=== PATIENT | female | born 1980 | race Caucasian/White ===

== ENCOUNTER 2019-06-22 17:29 | Emergency (ER) | payer OTHER, SELFPAY ==
--- NOTE | 2019-06-22 17:37 | DI.RAD.S_ITS ---
PROCEDURE: XR CHEST 2V INDICATIONS: shortness of breath TECHNIQUE: 2 views of the chest were acquired. COMPARISON: None. FINDINGS: Surgical changes and devices: None. Lungs and pleura: An incomplete inspiratory result is noted, causing a crowded appearance to the lung markings. No focal infiltrates are seen. No pneumothorax or significant pleural effusions are seen. Mediastinum: Mediastinal contours are normal. Heart size is normal. Bones and chest wall: No suspicious bony abnormalities. Soft tissues appear unremarkable. IMPRESSION: No acute cardiopulmonary process is seen. Dictated by: Lawson Garrison M.D. on 06/22/2019 at 16:57 Approved by: Lawson Garrison M.D. on 06/22/2019 at 16:57
[2019-06-22 17:46] VITALS: BP 126/67; PULSE 98; RESP 16; TEMP 36.7; O2SAT 98
[2019-06-22 18:03] VITALS: BP 124/78; PULSE 83; RESP 19; O2SAT 98
--- NOTE | 2019-06-22 18:08 | ED_ITS ---
HPI - Chest Pain General Chief Complaint: Chest Pain Stated Complaint: chest pain Time Seen by Provider: 06/22/19 18:01 History of Present Illness HPI narrative: 38-year-old woman with no significant medical history presents with 24 hours of increasing central chest pain pressure in a sense of increased pressure when she is laying flat in taking a deep breath. She has had a mild viral type syndrome with slight cough and minimal fever over the last 3 weeks with starting to feel better when she noticed increasing pain in the chest with deep breathing. She is currently having no fevers, no abdominal pain, nausea, vomiting, diarrhea, lower extremity edema. Related Data Allergies Allergy/AdvReac Type Severity Reaction Status Date / Time No Known Drug Allergies Allergy Verified 06/22/19 17:34 Review of Systems Review of Systems Narrative: All systems reviewed and are unremarkable except as noted in HPI and below Patient History Medical History Healthy adult (Acute) IUD (intrauterine device) in place (Acute) Social History Smoking Status: Current some day smoker Smoking Status: Current some day smoker alcohol intake frequency: a few times a week Substance Use Type: marijuana Exam Narrative Exam Narrative: General: Healthy appearing, in no acute distress. Able to give a complete and coherent history. Well-nourished well-developed HEENT: Moist mucous membranes, normal sclera with reactive pupils, Neck: No JVD, supple Respiratory: Lungs are clear to auscultation, no wheezing no rales no rhonchi. Full and symmetrical air movement, pain is reproduced with deep inspiratory effort Cardiac: Regular rate and rhythm no murmurs no bruits Chest wall: Tenderness along costal sternal margins right more than left Abdomen: Soft nontender good bowel tones, no flank pain Skin: Warm and dry, no rashes Neurologic: Grossly neurologically intact with no obvious asymmetries or abnormalities Extremities: No trauma, well perfused Psych: Cooperative, appropriate insight and affect Initial Vital Signs Initial Vital Signs: Vital Signs Temperature 98.0 F 06/22/19 17:46 Pulse Rate 98 H 06/22/19 17:46 Respiratory Rate 16 06/22/19 17:46 Blood Pressure 126/67 06/22/19 17:46 Pulse Oximetry 98 06/22/19 17:46 Course Orders Ordered: ED Orders 06/22/19 17:37 XR chest 2V Stat EKG-12 Lead Stat Measure peak expiratory flow ONCE RT Consult Eval and Treat Now 06/22/19 18:40 Complete Blood Count AUTO DIFF Stat Comprehensive Metabolic Panel Stat Lactate (Lactic Acid) Stat Discontinued Medications Acetaminophen (Tylenol) 325 mg PO NOW ONE Stop: 06/22/19 18:34 Last Admin: 06/22/19 19:03 Dose: 325 mg Documented by: ANGEL Ibuprofen (Advil) 400 mg PO NOW ONE Stop: 06/22/19 18:34 Last Admin: 06/22/19 19:03 Dose: 400 mg Documented by: ANGEL Vital Signs Vital signs: Vital Signs - 8 hr 06/22/19 17:46 06/22/19 18:03 06/22/19 18:55 Temperature 98.0 F Pulse Rate 98 H 83 85 Respiratory Rate 16 19 18 Blood Pressure [Left Arm] 126/67 124/78 112/75 Pulse Oximetry 98 98 99 06/22/19 19:30 Temperature Pulse Rate 87 Respiratory Rate 19 Blood Pressure [Left Arm] 120/73 Pulse Oximetry 97 MDM - Chest Pain Medical Records Data Attestation: I reviewed the patient's medical records. Lab Data Attestation: I reviewed the patient's lab results. Result diagrams: 06/22/19 18:40 06/22/19 18:40 Labs: Lab Results 06/22/19 06/22/19 06/22/19 Range/Units 18:40 18:40 18:40 WBC 13.6 H (4.5-11.0) X10^3/uL RBC 4.45 (4.0-5.2) X10^6/uL Hgb 14.3 (12.0-16.0) g/dL Hct 41.9 (36-46) % MCV 94.1 (80-100) fL MCH 32.1 (26-34) PG MCHC 34.1 (30-36) % RDW 12.9 (11.6-14.8) % Plt Count 266 (150-400) X10^3/uL Neut % (Auto) 61.6 (50-75) % Lymph % (Auto) 28.7 (25-40) % [place] % (Auto) 6.4 (3-14) % Eos % (Auto) 2.6 (2-4) % Baso % (Auto) 0.7 (0-2) % Neut # (Auto) 8300 H (2092-6835) /uL Lymph # (Auto) 3900 (4608-3605) /uL [place] # (Auto) 900 (0-900) /uL Eos # (Auto) 400 (0-450) /uL Baso # (Auto) 100 (0-100) /uL Sodium 139 (137-145) mmol/L Potassium 3.7 (3.4-5.1) mmol/L Chloride 107 (98-107) mmol/L Carbon Dioxide 24 (22-32) mmol/L BUN 11 (7-17) mg/dL Creatinine 0.59 (0.52-1.04) mg/dL Estimated GFR > 60.0 (>60) mL/min BUN/Creatinine Ratio 18.6 (6-22) Glucose 84 (70-100) mg/dL Lactate 0.9 (0.7-2.1) mmol/L Calcium 9.6 (8.4-10.2) mg/dL Total Bilirubin 0.2 (0.2-1.3) mg/dL AST 23 (14-36) IU/L ALT 20 (<35) IU/L Alkaline Phosphatase 61 (38-126) U/L Total Protein 7.8 (6.3-8.2) g/dL Albumin 4.5 (3.5-5.0) g/dL Globulin 3.3 (1.7-4.1) g/dL Albumin/Globulin Ratio 1.4 (1.0-2.8) Point of Care Testing Test Results Negative Urine Dip Bedside Urine Glucose Negative Bedside Urine Bilirubin - Negative Bedside Urine Ketone - Negative Urine Specific [place] 1.010 Bedside Urine Occult Blood +/- Bedside Urine pH 6.0 Bedside Urine Protein - Negative Bedside Urine Urobilinogen - Negative Bedside Urine Nitrite - Negative Bedside Urine Leukocytes - Negative Esterase Imaging Data Chest x-ray: Radiologist's Impression: IMPRESSION: No acute cardiopulmonary process is seen. Dictated by: Lawson Garrison M.D. on 06/22/2019 at 16:57 ECG Data Attestation: I personally reviewed and interpreted this ECG as follows: Interpretation: Normal sinus rhythm at a rate of 87 Normal intervals, normal axis no ST T wave changes or acute ischemia MDM Narrative Medical decision making narrative: 38-year-old otherwise healthy woman with resolving upper respiratory symptoms now with pleuritic and costochondral type chest pain, reproducible on palpation along the costal margin and with deep breathing. No evidence of overt infection, coronary syndrome EKG abnormalities, post influenza complications, pericarditis, cardiomyopathy or congestive heart failure. Suspect that this is a postviral pleurisy with costochondritis. Discharge Plan Departure Patient Disposition: Home Clinical Impression: Pleurisy, Acute costochondritis Instructions: DI for Costochondritis, DI for Pleurisy Activity Restrictions/Additional Instructions: Thank you for coming in today. Your labs, clinical exam and chest x-ray as well as your EKG are all very reassuring. At this point I do not see signs of overwhelming infection, heart attack or heart attack like syndromes, or heart complications of viral infections. We did test you for Covid19, cisneros virus. You will be called with results. In the meantime, I do think that you have both a pleuritic as well as a costoc hondritic component ear pain. Using 400 mg of ibuprofen (2 whdi-vjx-yxjdiin pills) and 1 Tylenol every 6 hours can be very helpful in controlling pain. If you feel like you are getting worse, developed more shortness of breath, have recurrent fevers or develop new or different symptoms please return to the emergency room and I am happy to re-evaluate. I hope you feel better CDC Guidelines for home isolation: - Stay away from others - Limit contact with pets and animals: If you must care for a pet, wash your hands before and after interacting with them - Wear a mask if you are sick - Cover your mouth and nose with a tissue when you cough or sneeze. Dispose of tissues in a lined trash can and wash your hands immediately with soap and water for at least 20 seconds. If soap and water are not available, clean hands with alcohol-based hand supportive employment case manager that contains at least 60% alcohol. - Clean your hands often with soap and water for at least 20 seconds - Avoid touching your eyes, nose and mouth with unwashed hands - Do not share dishes, drinking glasses, cups, eating utensils, towels, or bedding with other people in your home. After using these items, wash them thoroughly with soap and water or put in the manager medicare marketing. - Clean high-touch surfaces in your isolation area (?sick room? and bathroom) every day; let a caregiver clean and disinfect high-touch surfaces in other areas of the home. Clean the area or item with soap and water or another detergent if it is dirty. Then, use a household disinfectant. Seek medical attention, but call first: - Seek medical care right away if your illness is worsening (for example, if you have difficulty breathing). - Call your doctor before going in: Before going to the doctor?s office or emergency room, call ahead and tell them your symptoms. They will tell you what to do. - If possible, put on a facemask before you enter the building. If you can?t put on a facemask, try to keep a safe distance from other people (at least 6 feet away). This will help protect the people in the office or waiting room. - Follow care instructions from your healthcare provider and local health department: Your local health authorities will give instructions on checking your symptoms and reporting information. Emergency warning signs for COVID-19: - Difficulty breathing or shortness of breath - Persistent pain or pressure in the chest - New confusion or inability to arouse - Bluish lips or face
[2019-06-22 18:55] VITALS: BP 112/75; PULSE 85; RESP 18; O2SAT 99
[2019-06-22] MEDS: ACETAMINOPHEN 325 MG TABLET PO (19:03)
[2019-06-22] MEDS: IBUPROFEN 400 MG TABLET PO (19:03)
[2019-06-22 19:30] VITALS: BP 120/73; PULSE 87; RESP 19; O2SAT 97
[2019-06-22 19:41] LABS: Add Manual Diff / Slide Review NO; Basophils Absolute Auto 100 /uL (0-100); Basophils Percent Auto 0.7 % (0-2); Eosinophils Absolute Auto 400 /uL (0-450); Eosinophils Percent Auto 2.6 % (2-4); Hematocrit 41.9 % (36-46); Hemoglobin 14.3 g/dL (12.0-16.0); Lymphocytes Absolute Auto 3900 /uL (1100-4500); Lymphocytes Percent Auto 28.7 % (25-40); Mean Corpuscular HGB Conc 34.1 % (30-36); Mean Corpuscular Hemoglobin 32.1 PG (26-34); Mean Corpuscular Volume 94.1 fL (80-100); Monocytes Absolute Auto 900 /uL (0-900); Monocytes Percent Auto 6.4 % (3-14); Neutrophils Absolute Auto 8300 /uL (1500-7000); Neutrophils Percent Auto 61.6 % (50-75); Platelet Count 266 X10^3/uL (150-400); Red Blood Cell Count 4.45 X10^6/uL (4.0-5.2); Red Cell Distribution Width 12.9 % (11.6-14.8); White Blood Cell Count 13.6 X10^3/uL (4.5-11.0)
[2019-06-22 19:52] LABS: Lactate (Lactic Acid) 0.9 mmol/L (0.7-2.1)
[2019-06-22 19:53] LABS: Alanine Aminotransferase 20 IU/L (<35); Albumin 4.5 g/dL (3.5-5.0); Albumin Globulin Ratio 1.4 (1.0-2.8); Alkaline Phosphatase 61 U/L (38-126); Aspartate Aminotransferase 23 IU/L (14-36); BUN Creatinine Ratio 18.6 (6-22); Bilirubin Total 0.2 mg/dL (0.2-1.3); Blood Urea Nitrogen 11 mg/dL (7-17); Calcium 9.6 mg/dL (8.4-10.2); Carbon Dioxide 24 mmol/L (22-32); Chloride 107 mmol/L (98-107); Estimated Glomerular Filt Rate > 60.0 mL/min (>60); Globulin 3.3 g/dL (1.7-4.1); Glucose 84 mg/dL (70-100); HEMOLYSIS < 15 (0-50); Potassium 3.7 mmol/L (3.4-5.1); Sodium 139 mmol/L (137-145); Total Protein 7.8 g/dL (6.3-8.2)
[2019-06-22 20:47] VITALS: BP 130/75; PULSE 68; RESP 18; O2SAT 98
[2019-06-24 05:36] LABS: COVID19 Sendout Not Detected (Not Detected)
== END 2019-06-22 20:55 | disposition home or self-care (01) ==
PROVIDERS: Emergency Medicine; Emergency Provider Emergency Medicine
DX: R09.1 Pleurisy (principal); M94.0 Chondrocostal junction syndrome [Tietze]; R07.9 Chest pain, unspecified; R06.02 Shortness of breath
CPT/HCPCS: 36415; 71046; 80053; 81003; 81025; 83605; 85025; 87635; 93005; 94150; 99284

== ENCOUNTER → 2019-06-29 14:09 | Outpatient (CLI) | payer OTHER, SELFPAY ==
--- NOTE | 2019-06-29 14:13 | DI.RAD.S_ITS ---
PROCEDURE: XR CHEST 2V INDICATIONS: chest wall pain with cough TECHNIQUE: 2 views of the chest were acquired. COMPARISON: [facility], CR, XR CHEST 2V, 06/22/2019, 17:38. FINDINGS: Surgical changes and devices: None. Lungs and pleura: Lungs are clear. No pleural effusions or pneumothorax. Mediastinum: Mediastinal contours are normal. Heart size is normal. Bones and chest wall: No suspicious bony abnormalities. Soft tissues appear unremarkable. IMPRESSION: Stable radiographic evaluation of the chest without acute cardiopulmonary abnormalities or focal airspace disease. Dictated by: Kevin Giang M.D. on 06/29/2019 at 16:03 Approved by: Kevin Giang M.D. on 06/29/2019 at 16:04
== END ==
PROVIDERS: Referring Provider Family Medicine; Visit Provider Family Medicine
DX: R07.89 Other chest pain (principal); R05 Cough; M94.0 Chondrocostal junction syndrome [Tietze]; R09.1 Pleurisy
CPT/HCPCS: 71046

== ENCOUNTER → 2019-07-21 11:00 | Outpatient (CLI) | payer OTHER, SELFPAY ==
--- NOTE | 2019-07-21 11:01 | DI.CT.S_ITS ---
PROCEDURE: CT ANGIO CHEST INDICATIONS: SOB/chest pain TECHNIQUE: After the administration of intravenous contrast, 2 mm thick sections acquired from the pulmonary apices to the posterior costophrenic angles. 3-dimensional maximum intensity projection (MIP) coronal and sagittal reformats were then acquired through the thorax. For radiation dose reduction, the following was used: automated exposure control, adjustment of mA and/or kV according to patient size. COMPARISON: None. FINDINGS: Image quality: Excellent. Diagnostic to the level of the subsegmental pulmonary arteries. Pulmonary arteries: Pulmonary arteries are normal in size, and demonstrate no intraluminal filling defects to suggest central pulmonary embolism. Lungs and pleura: Lungs are clear. A punctate granuloma in the left upper lobe. No pleural effusions or pneumothorax. Central and peripheral airways are patent. Mediastinum: Heart size is normal, without pericardial effusion. No mediastinal or hilar adenopathy. Thoracic aorta is normal in caliber and enhancement. Esophagus is normal in caliber, without hiatal hernia. Bones and chest wall: No suspicious bony lesions. Ribs and thoracic spine appear intact throughout. Thyroid gland is unremarkable. No axillary or supraclavicular adenopathy. Abdomen: Visualized upper abdominal solid organs appear normal in the early arterial phase of enhancement. IMPRESSION: 1. No pulmonary embolism. 2. No acute airspace opacity. Dictated by: Herrera Mcguire M.D. on 07/21/2019 at 12:07 Approved by: Herrera Mcguire M.D. on 07/21/2019 at 12:13
== END ==
PROVIDERS: Referring Provider Family Medicine; Visit Provider Family Medicine
DX: R06.02 Shortness of breath (principal); R07.9 Chest pain, unspecified
CPT/HCPCS: 71275; Q9967

== ENCOUNTER 2019-09-08 10:13 | Emergency (ER) | payer OTHER, SELFPAY ==
[2019-09-08 10:14] VITALS: BP 136/77; PULSE 84; RESP 17; TEMP 36.9; O2SAT 100; BMI 30.2
[2019-09-08 10:16] VITALS: BP 136/77; PULSE 83; O2SAT 100
[2019-09-08 10:30] VITALS: PULSE 72; O2SAT 98
--- NOTE | 2019-09-08 10:33 | ED_ITS ---
HPI - Chest Pain General Chief Complaint: Chest Pain Stated Complaint: hard time swallowing, GERD Time Seen by Provider: 09/08/19 10:18 Source: patient Mode of arrival: Ambulatory Limitations: no limitations History of Present Illness HPI narrative: Patient is a 38-year-old female with history of severe GERD although she was just diagnosed with it. Presenting with chest pain and difficulty swallowing. She says it hurts when she swallows her saliva although she is able to do so she has got some epigastric pain. She did not eat anything recently no food is stuck in her throat it just hurts when she swallows. She is taking omeprazole which she took this morning and he says that has not helped. She denies any shortness of breath. MD complaint: chest pain Related Data Home Medications Medication Instructions Recorded Confirmed albuterol sulfate 90 mcg/actuation 2 puff INHALATION Q6H PRN 06/29/19 07/21/19 aerosol inhaler Previous Rx's Medication Instructions Recorded indomethacin 50 mg capsule 50 mg PO QID #30 cap 06/29/19 omeprazole magnesium 20 mg 20 mg PO DAILY #30 tab 07/21/19 tablet,delayed release prednisone 20 mg tablet 20 mg PO DAILY #7 tab 07/21/19 Allergies Allergy/AdvReac Type Severity Reaction Status Date / Time No Known Drug Allergies Allergy Verified 09/08/19 10:17 Review of Systems Review of Systems Narrative: GENERAL: Denies chills, fatigue, malaise, fever, sweats, travel HEENT: Difficulty swallowing see HPI RESPIRATORY: Denies dyspnea, cough, wheezing, hemoptysis, sputum. CARDIOVASCULAR: Chest pain see HPI GASTROINTESTINAL: Denies nausea, vomiting, abdominal pain, diarrhea, constipation, melena. : Denies dysuria, frequency, incontinence, hematuria, urinary retention, flank pain. MUSCULOSKELETAL: Denies weakness, joint pain, or bony pain SKIN: No rash, no erythema, no pruritus NEUROLOGIC: Denies weakness, dizziness, headache, numbness, change in speech, confusion PSYCHIATRIC: No concerning psychosocial issues. 12 point review of systems is negative except for those stated above and HPI Patient History Medical History GERD (gastroesophageal reflux disease) (Acute) Healthy adult (Acute) IUD (intrauterine device) in place (Acute) Social History Smoking Status: Current some day smoker Smoking Status: Current some day smoker alcohol intake frequency: a few times a week Substance Use Type: marijuana Exam Initial Vital Signs Initial Vital Signs: Vital Signs Temperature 98.5 F 09/08/19 10:14 Pulse Rate 84 09/08/19 10:14 Respiratory Rate 17 09/08/19 10:14 Blood Pressure 136/77 09/08/19 10:14 Pulse Oximetry 100 09/08/19 10:14 GENERAL: Alert well-appearing young female and in [no acute] distress. HEENT: Head atraumatic,EOMI, pupils reactive, face symmetric, [moist] mucous membranes CARDIOVASCULAR: Regular rate and rhythm without murmurs, rubs or gallops. RESPIRATORY: Breath sounds equal bilaterally, no wheezes rales or rhonchi. ABDOMEN: Soft, nontender. Normoactive bowel sounds all 4 quadrants. No guarding or rebound. EXTREMITIES: Normal range of motion, no clubbing or edema. Neurovascularly intact NEUROLOGICAL: Alert and oriented x4.Normal gait and speech. Cranial nerves II through XII grossly intact. SKIN: Warm, dry, no laceration, no petechiae, no rashes or lesions. Course Orders Ordered: ED Orders 09/08/19 10:19 EKG-12 Lead Stat 09/08/19 10:54 Basic Metabolic Panel Stat Complete Blood Count AUTO DIFF Stat Discontinued Medications Al Hydrox/Mg Hydrox/Simethicone 20 ml/ Lidocaine HCl 15 ml 0 ml PO NOW ONE Stop: 09/08/19 10:25 Last Admin: 09/08/19 11:01 Dose: 15 ml Documented by: SCANAPO Pantoprazole Sodium (Protonix) 40 mg IV NOW ONE Stop: 09/08/19 10:25 Last Admin: 09/08/19 11:01 Dose: 40 mg Documented by: SCANAPO Vital Signs Vital signs: Vital Signs - 8 hr 09/08/19 10:14 09/08/19 10:16 09/08/19 10:30 Temperature 98.5 F Pulse Rate 84 83 72 Respiratory Rate 17 Blood Pressure 136/77 136/77 Pulse Oximetry 100 100 98 09/08/19 11:48 Temperature Pulse Rate 69 Respiratory Rate Blood Pressure 113/69 Pulse Oximetry 99 MDM - Chest Pain Lab Data Attestation: I reviewed the patient's lab results. Result diagrams: 09/08/19 10:54 09/08/19 10:54 Labs: Lab Results 09/08/19 09/08/19 Range/Units 10:54 10:54 WBC 9.3 (4.5-11.0) X10^3/uL RBC 4.35 (4.0-5.2) X10^6/uL Hgb 14.3 (12.0-16.0) g/dL Hct 40.5 (36-46) % MCV 93.0 (80-100) fL MCH 32.8 (26-34) PG MCHC 35.3 (30-36) % RDW 12.6 (11.6-14.8) % Plt Count 238 (150-400) X10^3/uL Neut % (Auto) 65.7 (50-75) % Lymph % (Auto) 24.7 L (25-40) % [place] % (Auto) 6.5 (3-14) % Eos % (Auto) 2.3 (2-4) % Baso % (Auto) 0.8 (0-2) % Neut # (Auto) 6100 (2563-2014) /uL Lymph # (Auto) 2300 (9844-6839) /uL [place] # (Auto) 600 (0-900) /uL Eos # (Auto) 200 (0-450) /uL Baso # (Auto) 100 (0-100) /uL Sodium 138 (137-145) mmol/L Potassium 4.0 (3.4-5.1) mmol/L Chloride 106 (98-107) mmol/L Carbon Dioxide 27 (22-32) mmol/L BUN 11 (7-17) mg/dL Creatinine 0.63 (0.52-1.04) mg/dL Estimated GFR > 60.0 (>60) mL/min BUN/Creatinine Ratio 17.5 (6-22) Glucose 94 (70-100) mg/dL Calcium 9.3 (8.4-10.2) mg/dL ECG Data Attestation: I personally reviewed and interpreted this ECG as follows: Interpretation: Normal sinus rhythm rate 71 p.r. interval 136 QRS [address] elevation depression or T-wave inversion MDM Narrative Medical decision making narrative: The patient is feeling slightly better after GI cocktail. She has no trouble swallowing her own secretions or fluids or eating. At this time for PCP is trying to get her into a GI however that has not been arranged yet. I also supports that she needed GI evaluation, possibly an upper GI and endoscopy. Discharge Plan Departure Patient Disposition: Home Clinical Impression: GERD (gastroesophageal reflux disease) Qualifiers: Esophagitis presence: esophagitis presence not specified Qualified Code(s): K21.9 - Gastro-esophageal reflux disease without esophagitis Discharge Date/Time: 09/08/19 11:49 Instructions: DI for Gastroesophageal Reflux Disease (GERD) Activity Restrictions/Additional Instructions: *You have been diagnosed with GERD *What to do: You do need more testing and a GI specialist *Continue to take medications as directed Increase omeprazole to 40 mg twice a day Start taking ranitidine 150 mg twice a day (Over the counter) *Follow up with your primary care provider in 2-3 days *Return to ER if you should have inability to swallow, if food is stuck, increasing pain or any new, worsening or concerning symptoms Prescriptions: No Action albuterol sulfate 90 mcg/actuation HFA aerosol inhaler 2 puff INHALATION Q6H PRNRF: 0 indomethacin 50 mg capsule 50 mg PO QID Qty: 30 RF: 0 prednisone 20 mg tablet 20 mg PO DAILY Qty: 7 RF: 0 omeprazole magnesium [Prilosec OTC] 20 mg tablet,delayed release (DR/EC) 20 mg PO DAILY Qty: 30 RF: 0
[2019-09-08] MEDS: MAG HYDROX/ALUMINUM/SIMETH SUS 20 ML, LIDOCAINE VISCOUS 2% 15 ML PO (11:01)
[2019-09-08] MEDS: PANTOPRAZOLE 40 MG VIAL IV (11:01)
[2019-09-08 11:24] LABS: Add Manual Diff / Slide Review NO; Basophils Absolute Auto 100 /uL (0-100); Basophils Percent Auto 0.8 % (0-2); Eosinophils Absolute Auto 200 /uL (0-450); Eosinophils Percent Auto 2.3 % (2-4); Hematocrit 40.5 % (36-46); Hemoglobin 14.3 g/dL (12.0-16.0); Lymphocytes Absolute Auto 2300 /uL (1100-4500); Lymphocytes Percent Auto 24.7 % (25-40); Mean Corpuscular HGB Conc 35.3 % (30-36); Mean Corpuscular Hemoglobin 32.8 PG (26-34); Monocytes Absolute Auto 600 /uL (0-900); Monocytes Percent Auto 6.5 % (3-14); Neutrophils Absolute Auto 6100 /uL (1500-7000); Neutrophils Percent Auto 65.7 % (50-75); Platelet Count 238 X10^3/uL (150-400); Red Blood Cell Count 4.35 X10^6/uL (4.0-5.2); Red Cell Distribution Width 12.6 % (11.6-14.8); White Blood Cell Count 9.3 X10^3/uL (4.5-11.0)
[2019-09-08 11:32] LABS: BUN Creatinine Ratio 17.5 (6-22); Blood Urea Nitrogen 11 mg/dL (7-17); Calcium 9.3 mg/dL (8.4-10.2); Carbon Dioxide 27 mmol/L (22-32); Chloride 106 mmol/L (98-107); Estimated Glomerular Filt Rate > 60.0 mL/min (>60); Glucose 94 mg/dL (70-100); HEMOLYSIS < 15 (0-50); Sodium 138 mmol/L (137-145)
[2019-09-08 11:48] VITALS: BP 113/69; PULSE 69; O2SAT 99
== END 2019-09-08 11:49 | disposition home or self-care (01) ==
PROVIDERS: Emergency Provider Emergency Medicine
DX: K21.9 Gastro-esophageal reflux disease without esophagitis (principal); R10.13 Epigastric pain; R07.89 Other chest pain
CPT/HCPCS: 36415; 80048; 85025; 93005; 96374; 99284; C9113

== ENCOUNTER → 2019-09-20 14:53 | Outpatient (CLI) | payer OTHER, SELFPAY ==
[2019-09-21 08:17] LABS: COVID19 Sendout Not Detected (Not Detect)
== END ==
PROVIDERS: Visit Provider Physician Assistant
DX: Z01.812 Encounter for preprocedural laboratory examination (principal)
CPT/HCPCS: 87635

== ENCOUNTER → 2020-02-22 15:13 | Outpatient (CLI) | payer OTHER, SELFPAY ==
[2020-02-22 15:57] LABS: COVID19 -Nasal RAPID Negative (Negative)
== END ==
PROVIDERS: Referring Provider Internal Medicine; Visit Provider Internal Medicine
DX: Z20.828 Contact with and (suspected) exposure to other viral communicable diseases (principal)
CPT/HCPCS: 87635; C9803

== ENCOUNTER → 2020-02-23 15:16 | Outpatient (CLI) | payer OTHER, SELFPAY ==
--- NOTE | 2020-03-03 12:09 | PM.PFT.1 ---
Pulmonary Function Test Referral & Results Date Patient Seen: 02/23/20 Requesting provider: Christy Ortiz Results: The spirometry demonstrates an FVC of 3.59 L which is 106% of predicted. The FEV1 was measured at 2.89 L which is 103% of predicted. The FEV1/FVC ratio was 81 which is 97% of predicted. Following the administration of bronchodilator there was no appreciable change to above normal numbers. Lung volumes show an SVC of 3.53 L which is 109% of predicted. The diffusing capacity was measured at 18.05 which is 89% of predicted. The maximum voluntary ventilation was minimally reduced Interpretation: This study demonstrates normal pulmonary function
== END ==
PROVIDERS: Referring Provider Physician Assistant Medical; Visit Provider Physician Assistant Medical
DX: R06.00 Dyspnea, unspecified (principal); J98.8 Other specified respiratory disorders; F17.210 Nicotine dependence, cigarettes, uncomplicated
CPT/HCPCS: 94060; 94726; 94729

== ENCOUNTER 2022-01-07 09:12 | Emergency (ER) | payer OTHER, SELFPAY ==
[2022-01-07 09:37] VITALS: BP 111/78; PULSE 104; RESP 17; TEMP 36.3; O2SAT 98; BMI 30.2
[2022-01-07] MEDS: IBUPROFEN 400 MG TABLET 800 MG PO (14:35)
--- NOTE | 2022-01-07 14:36 | DI.MRI.S_ITS ---
PROCEDURE: MR LUMBAR SPINE WO CON INDICATIONS: lower back pain; urinary hesitancy; bowel pressure TECHNIQUE: Noncontrast sagittal T1 spin echo and T2 fast echo, sagittal STIR, and T2 fast spin echo through the lumbar spine. In cases with scoliosis, additional coronal T2 fast spin echo may be performed. COMPARISON: None. FINDINGS: Image quality: Excellent. Alignment and Curvature: There is normal bony alignment. Bone Marrow: Marrow is of normal overall signal. No acute vertebral body compression fractures. Spinal Cord: Conus medullaris terminates at the L1 level. Visualized cord demonstrates normal signal and size. Paraspinous Soft Tissues: No paravertebral masses. T12-L1: Normal appearance. L1-L2: Normal appearance. L2-L3: Normal appearance. L3-L4: Normal appearance. L4-L5: Minimal disc bulge L4-5 without spinal stenosis or foraminal narrowing.. L5-S1: Normal appearance. IMPRESSION: Minimal disc bulge L4-5. No spinal stenosis. Dictated by: Tia Dyer M.D. on 01/07/2022 at 15:20 Approved by: Tia Dyer M.D. on 01/07/2022 at 15:25
[2022-01-07 15:44] VITALS: BP 131/76; PULSE 84; RESP 14; O2SAT 97
--- NOTE | 2022-01-13 18:35 | ED.BACK ---
HPI - Back Pain/Injury General Chief Complaint: Back Pain/Injury Stated Complaint: massive lower lt back pain Sciatica for 10 years Time Seen by Provider: 01/07/22 09:24 Source: patient History of Present Illness HPI Narrative: 41-year-old female presents to the ED with left-sided lower back pain that has been worsening over the past several months. Patient states that she has urinary hesitancy and numbness in the left leg. Patient also states that she has a new symptom which is a pressure that she feels in her bowels, causing an urge for her to have frequent bowel movements. Patient denies tingling, weakness. Patient denies any other symptoms including fever, chills, chest pain, shortness of breath, nausea, vomiting, abdominal pain, dysuria, lightheadedness, dizziness, syncope. Patient denies any recent trauma. Patient states that she is being evaluated by her PCP and physical therapist with no relief. Related Data Home Medications Medication Instructions Recorded Confirmed albuterol sulfate 90 mcg/actuation 2 puff inhalation Q6H PRN 06/29/19 07/21/19 aerosol inhaler Previous Rx's Medication Instructions Recorded indomethacin 50 mg capsule 50 mg PO QID #30 caps 06/29/19 omeprazole magnesium 20 mg 20 mg PO DAILY #30 tabs 07/21/19 tablet,delayed release (Prilosec OTC) prednisone 20 mg tablet 20 mg PO DAILY #7 tabs 07/21/19 Allergies Allergy/AdvReac Type Severity Reaction Status Date / Time No Known Drug Allergies Allergy Verified 01/07/22 09:37 Review of Systems Review of Systems ROS Unobtainable: All systems reviewed & are unremarkable except as noted in HPI and below Constitutional Constitutional: Denies chills, Denies fatigue, Denies fever(s), Denies frequent falls, Denies lethargy and Denies weakness Eyes Eyes: Denies change in vision, Denies eye discharge, Denies irritation and Denies loss of vision ENT Ears, Nose, Mouth, and Throat: Denies change in voice, Denies dizziness, Denies neck pain, Denies sore throat and Denies throat swelling Cardiovascular Cardiovascular: Denies chest pain, Denies irregular heart rhythm, Denies lightheadedness, Denies palpitations, Denies dyspnea, Denies dyspnea on exertion and Denies orthopnea Respiratory Respiratory: Denies cough, Denies dyspnea, Denies dyspnea on exertion and Denies wheezing Gastrointestinal Gastrointestinal: Denies abdominal pain, Denies change in bowel habits, Denies diarrhea, Denies nausea and Denies vomiting Comments: Bowel pressure Genitourinary Genitourinary: Denies hematuria, Denies flank pain, Denies urinary incontinence, Reports urinary hesitancy and Denies urinary urgency Musculoskeletal Musculoskeletal: Reports back pain, Denies muscle weakness, Denies neck pain, Reports numbness and Denies tingling Integumentary/Breasts Skin/Breast: Denies pruritus, Denies erythema, Denies rash and Denies wounds Neurologic Neurologic: Denies behavioral changes, Denies confusion, Denies dizziness, Denies frequent falls, Denies loss of vision, Reports numbness, Denies tingling and Denies weakness Psychiatric Psychiatric: Denies anxiety, Denies behavioral changes, Denies confusion, Denies depression, Denies homicidal ideation and Denies suicidal ideation Endocrine Endocrine: Denies fatigue, Denies flushing and Denies palpitations Hematologic/Lymphatic Hematologic/Lymphatic: Denies easy bruising Allergic/Immunologic Allergic/Immunologic: Denies urticaria, Denies throat swelling and Denies wheezing Patient History Medical History GERD (gastroesophageal reflux disease) Healthy adult IUD (intrauterine device) in place Social History Smoking Status: Current every day smoker Smoking Status: Current every day smoker alcohol intake frequency: a few times a week Substance Use Type: marijuana Exam Narrative Exam Narrative: Const General:?cooperative, healthy appearing and comfortable [facility] Head:?normal to inspection Ears:?hearing grossly normal bilaterally Nose:?external nose normal Face and sinus:?normal facial exam and sinuses nontender Mouth:?oral mucosae normal Throat:?posterior oropharynx normal Eyes General:?appearance normal, both eyes and all related structures Neck Neck:?normal visual inspection and no lymphadenopathy noted Resp Effort & Inspection:?normal respiratory effort Auscultation:?clear to auscultation bilaterally Cardio Rate:?regular rate Rhythm:?regular rhythm Musculoskeletal No midline tenderness to palpation. No paraspinal tenderness to palpation. Patient is neurovascularly intact. Strength and sensation is intact. Range of motion intact. Neuro General:?patient alert, patient awake and patient oriented x3 Initial Vital Signs Initial Vital Signs: Vital Signs Temperature 97.3 F L 01/07/22 09:37 Pulse Rate 104 H 01/07/22 09:37 Respiratory Rate 17 01/07/22 09:37 Blood Pressure 111/78 01/07/22 09:37 Pulse Oximetry 98 01/07/22 09:37 Oxygen Delivery Method 01/07/22 09:37 Course Orders Ordered: Discontinued Medications Ibuprofen (Ibuprofen 400 Mg Tablet) 800 mg PO NOW ONE Stop: 01/07/22 13:59 Last Admin: 01/07/22 14:35 Dose: 800 mg Documented By: [facility] MDM - Back Pain/Injury Lab Data Labs: Point of Care Testing Test Results Negative Urine Dip Bedside Urine Glucose Negative Bedside Urine Bilirubin - Negative Bedside Urine Ketone - Negative Urine Specific [place] 1.005 Bedside Urine Occult Blood - Negative Bedside Urine pH 6.0 Bedside Urine Protein - Negative Bedside Urine Urobilinogen - Negative Bedside Urine Nitrite - Negative Bedside Urine Leukocytes - Negative Esterase Imaging Data MR lumbar spine: Radiologist's Impression: PROCEDURE:? MR LUMBAR SPINE WO CON ? INDICATIONS:? lower back pain; urinary hesitancy; bowel pressure ? TECHNIQUE:? Noncontrast sagittal T1 spin echo and T2 fast echo, sagittal STIR, and T2 fast spin echo through the lumbar spine.? In cases with scoliosis, additional coronal T2 fast spin echo may be performed.? ? COMPARISON:? None. ? FINDINGS:? Image quality:? Excellent.? ? Alignment and Curvature:? There is normal bony alignment.? ? Bone Marrow:? Marrow is of normal overall signal.? No acute vertebral body compression fractures.? ? Spinal Cord:? Conus medullaris terminates at the L1 level.? Visualized cord demonstrates normal signal and size.? ? Paraspinous Soft Tissues:? No paravertebral masses.? ? T12-L1:? Normal appearance.? ? L1-L2:? Normal appearance.? ? L2-L3:? Normal appearance.? ? L3-L4:? Normal appearance.? ? L4-L5:? Minimal disc bulge L4-5 without spinal stenosis or foraminal narrowing..? ? L5-S1:? Normal appearance.? ? ? IMPRESSION:? ? Minimal disc bulge L4-5. ? No spinal stenosis. ? Dictated by: Tia Dyer M.D. on 01/07/2022 at 15:20 ? ? Approved by: Tia Dyer M.D. on 01/07/2022 at 15:25 ? MDM Narrative Medical decision making narrative: 41-year-old female presents to the ED with left-sided lower back pain that has been worsening over the past several months. Given some red flags including urinary hesitancy, pressure in the balls, numbness, will obtain MRI of the lumbar spine. Will reassess. MRI shows Minimal disc bulge L4-5 without spinal stenosis or foraminal narrowing. Findings discussed with patient. Recommend follow-up with PCP, ortho, PT. ED return precautions discussed with patient. Patient verbalized understanding. Discharge Plan Departure Patient Disposition: Home Clinical Impression: Lower back pain Instructions: DI for Low Back Pain Activity Restrictions/Additional Instructions: You were evaluated in the ED today for lower back pain. The MRI shows a minimal disc bulge in L4-5 without any spinal stenosis or foraminal narrowing, which is reassuring for no spinal emergency today. You may continue to take ibuprofen, Tylenol, continue physical therapy. Please also follow-up with your primary care provider to see if you need a referral to ortho. Please return to the ED if you are unable to urinate, lose bowel control, experience numbness, tingling, weakness. Prescriptions: No Action albuterol sulfate 90 mcg/actuation HFA aerosol inhaler 2 puff INHALATION Q6H PRN indomethacin 50 mg capsule 50 mg PO QID Qty: 30 0RF Rx Instructions: administer with food or milk prednisone 20 mg tablet 20 mg PO DAILY Qty: 7 0RF omeprazole magnesium [Prilosec OTC] 20 mg tablet,delayed release (DR/EC) 20 mg PO DAILY Qty: 30 0RF Referrals: Rocio Nagy PA-C [Primary Care Provider] - Stand Alone Forms: Work Release Note Visit Report Forms: Patient Portal/API
== END 2022-01-07 15:44 | disposition home or self-care (01) ==
PROVIDERS: Emergency Provider Student in an Organized Health Care Education/Training Program; PCP Physician Assistant
DX: M54.50 Low back pain, unspecified (principal); R20.0 Anesthesia of skin
CPT/HCPCS: 72148; 81003; 81025; 99284

== ENCOUNTER 2022-11-23 09:18 | Emergency (ER) | payer OTHER, SELFPAY ==
[2022-11-23] VITALS (12 sets, daily range): BP systolic 101–131; BP diastolic 62–70; PULSE 58–87; RESP 14; TEMP 36.2; O2SAT 97–100
[2022-11-23 10:00] LABS: Add Manual Diff / Slide Review NO; Basophils Absolute Auto 100 /uL (0-100); Basophils Percent Auto 0.7 % (0-2); Eosinophils Absolute Auto 100 /uL (0-450); Eosinophils Percent Auto 1.2 % (2-4); Hematocrit 42.3 % (36-46); Hemoglobin 14.6 g/dL (12.0-16.0); Lymphocytes Absolute Auto 2100 /uL (1100-4500); Lymphocytes Percent Auto 21.2 % (25-40); Mean Corpuscular HGB Conc 34.6 % (30-36); Mean Corpuscular Hemoglobin 31.8 PG (26-34); Mean Corpuscular Volume 91.7 fL (80-100); Monocytes Absolute Auto 400 /uL (0-900); Monocytes Percent Auto 3.8 % (3-14); Neutrophils Absolute Auto 7300 /uL (1500-7000); Neutrophils Percent Auto 73.1 % (50-75); Platelet Count 219 X10^3/uL (150-400); Red Blood Cell Count 4.61 X10^6/uL (4.0-5.2); Red Cell Distribution Width 12.6 % (11.6-14.8)
--- NOTE | 2022-11-23 10:15 | ED.GIBLEED ---
HPI - GI Bleed General Chief complaint: GI Bleed Stated complaint: blood in stool Time Seen by Provider: 11/23/22 09:55 Source: patient Mode of arrival: Ambulatory Limitations: no limitations History of Present Illness HPI Narrative: 42-year-old female. Over the past year has had 2 episodes of diverticulitis. First [address] scan. She was placed on antibiotics. Her symptoms did not improve so she was again placed on another course of antibiotics without repeat imaging. She had a follow-up with GI last . They did recommend a colonoscopy but this is yet to be scheduled. She states that ever since her 1st diagnosis of diverticulitis she is had continued lower abdominal pain. It has improved but is not completely resolved. Yesterday started to have rectal bleeding. It is bright red. She also states she is a fullness in her rectum and feels like she needs to go to the bathroom often however it is still there even after having a bowel movement. No blood in her urine. No vomiting. Subjective fevers. Related Data Home Medications Medication Instructions Recorded Confirmed No Known Home Medications 11/23/22 11/23/22 Allergies Allergy/AdvReac Type Severity Reaction Status Date / Time No Known Drug Allergies Allergy Verified 11/23/22 09:37 Review of Systems Constitutional Constitutional: Reports system reviewed and no additional complaints, except as documented Gastrointestinal Gastrointestinal: Reports system reviewed and no additional complaints, except as documented Genitourinary Genitourinary: Reports system reviewed and no additional complaints, except as documented Musculoskeletal Musculoskeletal: Reports system reviewed and no additional complaints, except as documented Hematologic/Lymphatic On Anticoagulants: No Patient History Medical History GERD (gastroesophageal reflux disease) Healthy adult IUD (intrauterine device) in place Social History Smoking Status: Current some day smoker Smoking Status: Current some day smoker alcohol intake frequency: other Substance Use Type: marijuana Exam Initial Vital Signs Initial Vital Signs: Vital Signs Temperature 97.2 F L 11/23/22 09:32 Pulse Rate 87 11/23/22 09:32 Respiratory Rate 14 11/23/22 09:32 Blood Pressure 110/62 11/23/22 09:32 Pulse Oximetry 99 11/23/22 09:32 Oxygen Delivery Method Room Air 11/23/22 09:32 Const General: cooperative, comfortable and No ill appearing HENMT Head: normal to inspection and normocephalic Resp Effort & Inspection: normal respiratory effort Cardio Rate: regular rate GI Inspection: normal to inspection and non-distended Palpation: soft, No firm, No guarding and tender Skin General: no rashes or lesions noted Neuro General: patient alert, patient awake, patient oriented x3 and moves all extremities Extrem General: normal to inspection and capillary refill normal Course Orders Ordered: ED Orders 11/23/22 09:47 Urine Culture Stat Urine Microscopic Stat 11/23/22 09:50 Complete Blood Count AUTO DIFF Stat Comprehensive Metabolic Panel Stat PTT Partial Thromboplastin Nhan Stat Prothrombin Time INR Stat Type and Screen Stat 11/23/22 10:55 CT abdomen pelvis w con Stat Ondansetron HCl (Ondansetron 4 Mg/2 Ml Inj) 4 mg IV NOW PRN PRN Reason: Nausea And Vomiting Last Admin: 11/23/22 10:42 Dose: 4 mg Documented By: Ondansetron HCl (Ondansetron 4 Mg Odt) 4 mg SL NOW PRN PRN Reason: Nausea And Vomiting Discontinued Medications Pantoprazole Sodium (Pantoprazole 40 Mg Vial) 80 mg IV NOW ONE Stop: 11/23/22 09:39 Last Admin: 11/23/22 10:42 Dose: 80 mg Documented By: Vital Signs Vital signs: Vital Signs - 8 hr 11/23/22 09:32 11/23/22 09:54 11/23/22 10:00 Temperature 97.2 F L Pulse Rate 87 73 Respiratory Rate 14 Blood Pressure 110/62 Pulse Oximetry 99 98 99 Oxygen Delivery Method Room Air 11/23/22 10:39 11/23/22 10:40 11/23/22 10:40 Temperature Pulse Rate 82 66 Respiratory Rate Blood Pressure 126/70 Pulse Oximetry 97 100 Oxygen Delivery Method 11/23/22 10:56 11/23/22 10:56 11/23/22 11:00 Temperature Pulse Rate 65 Respiratory Rate Blood Pressure 111/64 110/65 Pulse Oximetry 100 Oxygen Delivery Method 11/23/22 11:00 11/23/22 11:30 Temperature Pulse Rate 67 67 Respiratory Rate Blood Pressure Pulse Oximetry 99 99 Oxygen Delivery Method MDM - GI Bleed Lab Data Attestation: I reviewed the patient's lab results. 11/23/22 09:50 11/23/22 09:50 Labs: Lab Results 11/23/22 11/23/22 11/23/22 Range/Units 09:47 09:50 09:50 WBC 10.0 (4.5-11.0) X10^3/uL RBC 4.61 (4.0-5.2) X10^6/uL Hgb 14.6 (12.0-16.0) g/dL Hct 42.3 (36-46) % MCV 91.7 (80-100) fL MCH 31.8 (26-34) PG MCHC 34.6 (30-36) % RDW 12.6 (11.6-14.8) % Plt Count 219 (150-400) X10^3/uL Neut % (Auto) 73.1 (50-75) % Lymph % (Auto) 21.2 L (25-40) % Crisp % (Auto) 3.8 (3-14) % Eos % (Auto) 1.2 L (2-4) % Baso % (Auto) 0.7 (0-2) % Neut # (Auto) 7300 H (1304-6470) /uL Lymph # (Auto) 2100 (8972-0402) /uL Crisp # (Auto) 400 (0-900) /uL Eos # (Auto) 100 (0-450) /uL Baso # (Auto) 100 (0-100) /uL PT 13.2 H (10.1-12.7) SECONDS INR 1.2 (0.9-1.3) APTT 36 (26-36) SECONDS Sodium (137-145) mmol/L Potassium (3.4-5.1) mmol/L Chloride (98-107) mmol/L Carbon Dioxide (22-32) mmol/L BUN (7-17) mg/dL Creatinine (0.52-1.04) mg/dL Estimated GFR (>60) mL/min BUN/Creatinine Ratio (6-22) Glucose (70-100) mg/dL Calcium (8.4-10.2) mg/dL Total Bilirubin (0.2-1.3) mg/dL AST (14-36) IU/L ALT (<35) IU/L Alkaline Phosphatase (38-126) U/L Total Protein (6.3-8.2) g/dL Albumin (3.5-5.0) g/dL Globulin (1.7-4.1) g/dL Albumin/Globulin Ratio (1.0-2.8) Urine RBC None seen (0-5/HPF) Urine WBC 1-5/hpf (0-5/HPF) Ur Squamous Epith Cells 5-10 /hpf H (0-5/HPF) Urine Bacteria Many (>30) H (None) Urine Mucus 3+ H (Negative) Ur Culture Indicated? Specimen cultured Blood Type Antibody Screen 11/23/22 11/23/22 Range/Units 09:50 09:50 WBC (4.5-11.0) X10^3/uL RBC (4.0-5.2) X10^6/uL Hgb (12.0-16.0) g/dL Hct (36-46) % MCV (80-100) fL MCH (26-34) PG MCHC (30-36) % RDW (11.6-14.8) % Plt Count (150-400) X10^3/uL Neut % (Auto) (50-75) % Lymph % (Auto) (25-40) % Crisp % (Auto) (3-14) % Eos % (Auto) (2-4) % Baso % (Auto) (0-2) % Neut # (Auto) (8509-4585) /uL Lymph # (Auto) (4474-7930) /uL Crisp # (Auto) (0-900) /uL Eos # (Auto) (0-450) /uL Baso # (Auto) (0-100) /uL PT (10.1-12.7) SECONDS INR (0.9-1.3) APTT (26-36) SECONDS Sodium 138 (137-145) mmol/L Potassium 3.7 (3.4-5.1) mmol/L Chloride 104 (98-107) mmol/L Carbon Dioxide 25 (22-32) mmol/L BUN 9 (7-17) mg/dL Creatinine 0.64 (0.52-1.04) mg/dL Estimated GFR > 60 (>60) mL/min BUN/Creatinine Ratio 14.1 (6-22) Glucose 140 H (70-100) mg/dL Calcium 9.7 (8.4-10.2) mg/dL Total Bilirubin 0.4 (0.2-1.3) mg/dL AST 25 (14-36) IU/L ALT 26 (<35) IU/L Alkaline Phosphatase 54 (38-126) U/L Total Protein 7.7 (6.3-8.2) g/dL Albumin 4.4 (3.5-5.0) g/dL Globulin 3.3 (1.7-4.1) g/dL Albumin/Globulin Ratio 1.3 (1.0-2.8) Urine RBC (0-5/HPF) Urine WBC (0-5/HPF) Ur Squamous Epith Cells (0-5/HPF) Urine Bacteria (None) Urine Mucus (Negative) Ur Culture Indicated? Blood Type O Negative Antibody Screen Negative Point of Care Testing Test Results Negative Urine Dip Bedside Urine Glucose Negative Bedside Urine Bilirubin - Negative Bedside Urine Ketone - Negative Urine Specific [place] 1.015 Bedside Urine Occult Blood +/- Bedside Urine pH 6.0 Bedside Urine Protein - Negative Bedside Urine Urobilinogen - Negative Bedside Urine Nitrite - Negative Bedside Urine Leukocytes - Negative Esterase Imaging Data CT scan - abdomen/pelvis: Radiologist's Impression: PROCEDURE:? CT ABDOMEN PELVIS W CON ? INDICATIONS:? History of diverticulitis with rectal bleeding and pain ? TECHNIQUE:? After the administration of intravenous contrast, axial sections acquired from the lung bases to the pubic symphysis.? Coronal and sagittal reformats were performed.? For radiation dose reduction, the following was used:? automated exposure control, adjustment of mA and/or kV according to patient size.? ? COMPARISON:? None. ? FINDINGS:? Image quality:? Excellent.? ? Lung bases:? Unremarkable. Heart:? No significant findings. ? ABDOMEN: Liver:? Unremarkable.? ? Gallbladder:? Unremarkable.? ? Biliary ducts:? Unremarkable.? ? Pancreas:? Unremarkable.? ? Spleen:? Unremarkable.? ? Adrenal Glands:? Unremarkable.? ? Kidneys and Ureters:? Unremarkable.? ? ? Stomach and Bowel:? Stomach and small bowel are within normal limits.? There is thickening versus suboptimal distension of the distal transverse colon as well as the descending and sigmoid colon.? Normal appendix. Peritoneum:? Trace free fluid in the pelvis, within physiological limits in a menstruating female.? No free air.? ? Ventral Wall: ? No hernias.? Abdominal Nodes:? No retroperitoneal or mesenteric adenopathy by size criteria.? Vessels:? Aorta and inferior vena cava are normal in size.? ? PELVIS: Pelvic Organs:? Intrauterine device is present. Bladder:? Unremarkable.? ? Pelvic Nodes: No enlarged lymph nodes.? Miscellaneous: No hernias are seen. ? ? ? Bones:? Unremarkable.? IMPRESSION:? 1. Normal appendix. 2. Trace free fluid in the pelvis, within physiological limits in a menstruating female. 3. Thickening versus suboptimal distension of the colon, which could indicate ischemia, infection, or inflammation.? Clinical correlation recommended.? MDM Narrative Medical decision making narrative: CT scan does show colitis but no evidence of diverticulitis nor abscess no bowel obstruction. She has completed 2 courses of antibiotics with only minimal improvement. She has seen GI and his in the process of getting a colonoscopy. There was no indication for emergent consultation with GI or General surgery. No indication for admission to the hospital. I feel that adding a 3rd course of antibiotics would not be helpful. I have low suspicion for ischemic bowel. Plan will be for her to continue with the current course and contact her GI doctor and primary doctor for follow-up. Discharge Plan Departure Patient Disposition: Home Clinical Impression: Colitis Instructions: DI for Colitis Activity Restrictions/Additional Instructions: Recommend that you continue to take all of your medications as directed and continue with the plan of obtaining a colonoscopy. Contact your primary doctor and also your GI doctor tomorrow for a. Return the emergency department for new symptoms. Prescriptions: No Action No Known Home Medications Referrals: Rocio Nagy PA-C [Primary Care Provider] - Stand Alone Forms: Patient Portal/API
[2022-11-23 10:16] LABS: Alanine Aminotransferase 26 IU/L (<35); Albumin 4.4 g/dL (3.5-5.0); Albumin Globulin Ratio 1.3 (1.0-2.8); Alkaline Phosphatase 54 U/L (38-126); Aspartate Aminotransferase 25 IU/L (14-36); BUN Creatinine Ratio 14.1 (6-22); Bilirubin Total 0.4 mg/dL (0.2-1.3); Blood Urea Nitrogen 9 mg/dL (7-17); Calcium 9.7 mg/dL (8.4-10.2); Carbon Dioxide 25 mmol/L (22-32); Chloride 104 mmol/L (98-107); Estimated Glomerular Filt Rate > 60 mL/min (>60); Globulin 3.3 g/dL (1.7-4.1); Glucose 140 mg/dL (70-100); HEMOLYSIS < 15 (0-50); Potassium 3.7 mmol/L (3.4-5.1); Sodium 138 mmol/L (137-145); Total Protein 7.7 g/dL (6.3-8.2)
[2022-11-23 10:21] LABS: INR 1.2 (0.9-1.3); Prothrombin Time 13.2 SECONDS (10.1-12.7)
[2022-11-23 10:24] LABS: PTT Partial Thromboplastin Tim 36 SECONDS (26-36)
[2022-11-23 10:36] LABS: Bacteria Urine Many (>30); Culture Indicated Urine Specimen Cultured; Mucus Urine 3+ (Negative); RBC Urine None Seen (0-5/HPF); Squamous Epithelial Cell Urine 5-10 /HPF (0-5/HPF); WBC Urine 1-5/HPF (0-5/HPF)
[2022-11-23] MEDS: ONDANSETRON 4 MG/2 ML INJ IV (10:42)
[2022-11-23] MEDS: PANTOPRAZOLE 40 MG VIAL 80 MG IV (10:42)
--- NOTE | 2022-11-23 10:55 | DI.CT.S_ITS ---
PROCEDURE: CT ABDOMEN PELVIS W CON INDICATIONS: History of diverticulitis with rectal bleeding and pain TECHNIQUE: After the administration of intravenous contrast, axial sections acquired from the lung bases to the pubic symphysis. Coronal and sagittal reformats were performed. For radiation dose reduction, the following was used: automated exposure control, adjustment of mA and/or kV according to patient size. COMPARISON: None. FINDINGS: Image quality: Excellent. Lung bases: Unremarkable. Heart: No significant findings. ABDOMEN: Liver: Unremarkable. Gallbladder: Unremarkable. Biliary ducts: Unremarkable. Pancreas: Unremarkable. Spleen: Unremarkable. Adrenal Glands: Unremarkable. Kidneys and Ureters: Unremarkable. Stomach and Bowel: Stomach and small bowel are within normal limits. There is thickening versus suboptimal distension of the distal transverse colon as well as the descending and sigmoid colon. Normal appendix. Peritoneum: Trace free fluid in the pelvis, within physiological limits in a menstruating female. No free air. Ventral Wall: No hernias. Abdominal Nodes: No retroperitoneal or mesenteric adenopathy by size criteria. Vessels: Aorta and inferior vena cava are normal in size. PELVIS: Pelvic Organs: Intrauterine device is present. Bladder: Unremarkable. Pelvic Nodes: No enlarged lymph nodes. Miscellaneous: No hernias are seen. Bones: Unremarkable. IMPRESSION: 1. Normal appendix. 2. Trace free fluid in the pelvis, within physiological limits in a menstruating female. 3. Thickening versus suboptimal distension of the colon, which could indicate ischemia, infection, or inflammation. Clinical correlation recommended. Dictated by: Jaylene Pfeiffer M.D. on 11/23/2022 at 11:08 Approved by: Jaylene Pfeiffer M.D. on 11/23/2022 at 11:09
== END 2022-11-23 12:30 | disposition home or self-care (01) ==
PROVIDERS: Emergency Provider Emergency Medicine; PCP Physician Assistant
DX: K52.9 Noninfective gastroenteritis and colitis, unspecified (principal); K62.5 Hemorrhage of anus and rectum
CPT/HCPCS: 36415; 74177; 80053; 81003; 81015; 81025; 85025; 85610; 85730; 86850; 86900; 86901; 87077; 87086; 87186; 96374; 96375; 99284; C9113; J2405; Q9967

== ENCOUNTER 2023-02-13 16:31 | Emergency (ER) | payer OTHER, SELFPAY ==
[2023-02-13 16:34] VITALS: BP 116/73; PULSE 97; RESP 16; TEMP 37.1; O2SAT 97; BMI 26.0
[2023-02-13 17:03] LABS: Add Manual Diff / Slide Review NO; Basophils Absolute Auto 100 /uL (0-100); Basophils Percent Auto 1.2 % (0-2); Eosinophils Absolute Auto 300 /uL (0-450); Eosinophils Percent Auto 2.9 % (2-4); Hematocrit 42.4 % (36-46); Hemoglobin 14.6 g/dL (12.0-16.0); Lymphocytes Absolute Auto 3700 /uL (1100-4500); Lymphocytes Percent Auto 32.4 % (25-40); Mean Corpuscular HGB Conc 34.5 % (30-36); Mean Corpuscular Hemoglobin 31.3 PG (26-34); Mean Corpuscular Volume 90.7 fL (80-100); Monocytes Absolute Auto 700 /uL (0-900); Monocytes Percent Auto 6.1 % (3-14); Neutrophils Absolute Auto 6600 /uL (1500-7000); Neutrophils Percent Auto 57.4 % (50-75); Platelet Count 260 X10^3/uL (150-400); Red Blood Cell Count 4.68 X10^6/uL (4.0-5.2); Red Cell Distribution Width 12.9 % (11.6-14.8); White Blood Cell Count 11.5 X10^3/uL (4.5-11.0)
[2023-02-13 17:11] LABS: Alanine Aminotransferase 17 IU/L (<35); Albumin 4.2 g/dL (3.5-5.0); Albumin Globulin Ratio 1.3 (1.0-2.8); Alkaline Phosphatase 57 U/L (38-126); Aspartate Aminotransferase 22 IU/L (14-36); BUN Creatinine Ratio 16.9 (6-22); Bilirubin Total 0.3 mg/dL (0.2-1.3); Blood Urea Nitrogen 10 mg/dL (7-17); Calcium 9.6 mg/dL (8.4-10.2); Carbon Dioxide 23 mmol/L (22-32); Chloride 107 mmol/L (98-107); Estimated Glomerular Filt Rate > 60 mL/min (>60); Globulin 3.2 g/dL (1.7-4.1); Glucose 84 mg/dL (70-100); HEMOLYSIS < 15 (0-50); Lipase 62 U/L (23-300); Potassium 3.9 mmol/L (3.4-5.1); Sodium 138 mmol/L (137-145); Total Protein 7.4 g/dL (6.3-8.2)
[2023-02-13 19:25] VITALS: BP 108/56; PULSE 72; RESP 18; TEMP 37.2; O2SAT 98
[2023-02-13 19:29] LABS: Appearance Urine UA CLEAR; Bilirubin Urine UA NEGATIVE (NEGATIVE); Color Urine UA YELLOW; Glucose Urine UA NEGATIVE (Negative); Ketones Urine UA NEGATIVE (NEGATIVE); Leukocyte Esterase Urine UA NEGATIVE (NEGATIVE); Nitrite Urine UA NEGATIVE (Negative); Occult Blood Urine UA NEGATIVE (Negative); Protein Urine UA NEGATIVE (Negative); Urobilinogen Urine UA 0.2 E.U./dL (0.2)
[2023-02-13 19:32] LABS: Pregnancy Test Urine Negative (Negative); pH Urine UA 5.5 (4.5-8.0)
--- NOTE | 2023-02-13 19:58 | ED_ITS ---
HPI - General Adult General Chief complaint: Abdominal Pain Stated complaint: states diverticulitis Time Seen by Provider: 02/13/23 19:52 Source: patient Mode of arrival: Ambulatory Limitations: no limitations History of Present Illness HPI narrative: Patient is a 42-year-old female. Is currently on Cipro and Flagyl for diagnosis of diverticulitis. Approximately 2 weeks ago she was seen in the walk-in clinic. She is had 2 episodes of diverticulitis prior to this 1 since the middle of this year. She went to the walk-in clinic. Was prescribed amoxicillin. Took that for approximately 1 week. Symptoms were not improving. Went to an outside emergency department. Had a CT scan performed. Was diagnosed with diverticulitis. Discharged home on Cipro and Flagyl. She is now been on those medicines for just under 1 week. She states over the past 2 days she is had quite a bit of nausea and vomiting. The abdominal pain has actually improved. She was told by her GI doctor that she needed to come to the emergency department she potentially needed to see a general surgeon. Related Data Allergies Allergy/AdvReac Type Severity Reaction Status Date / Time No Known Drug Allergies Allergy Verified 11/23/22 09:37 Review of Systems Constitutional Constitutional: Reports system reviewed and no additional complaints, except as documented Cardiovascular Cardiovascular: Reports system reviewed and no additional complaints, except as documented Respiratory Respiratory: Reports system reviewed and no additional complaints, except as documented Gastrointestinal Gastrointestinal: Reports system reviewed and no additional complaints, except as documented Genitourinary Genitourinary: Reports system reviewed and no additional complaints, except as documented Integumentary/Breasts Skin/Breast: Reports system reviewed and no additional complaints, except as documented Neurologic Neurologic: Reports system reviewed and no additional complaints, except as documented Hematologic/Lymphatic On Anticoagulants: No Patient History Medical History GERD (gastroesophageal reflux disease) IUD (intrauterine device) in place Healthy adult Social History Smoking Status: Current some day smoker Smoking Status: Current some day smoker alcohol intake frequency: other Substance Use Type: marijuana Exam Initial Vital Signs Initial Vital Signs: Vital Signs Temperature 98.7 F 02/13/23 16:34 Pulse Rate 97 H 02/13/23 16:34 Respiratory Rate 16 02/13/23 16:34 Blood Pressure 116/73 02/13/23 16:34 Pulse Oximetry 97 02/13/23 16:34 Oxygen Delivery Method Room Air 02/13/23 16:34 Const General: cooperative, comfortable and No ill appearing HENMT Head: normal to inspection and normocephalic Resp Effort & Inspection: normal respiratory effort Cardio Rate: regular rate GI Inspection: normal to inspection and non-distended Neuro General: patient alert, patient awake and moves all extremities Extrem General: normal to inspection and capillary refill normal Course Orders Ordered: ED Orders 02/13/23 19:00 Test Urine Stat Urinalysis Screen (Dip Only) Stat 02/13/23 19:58 CT abdomen pelvis w con Stat Discontinued Medications Sodium Chloride (Normal Saline 0.9%) 1,000 mls @ 1,000 mls/hr IV BOLUS ONE Stop: 02/13/23 20:57 Last Infusion: 02/13/23 21:07 Dose: Infused Documented By: СЕРГЕЙ Admin: 02/13/23 20:16 Dose: 1,000 mls/hr Documented By: СЕРГЕЙ Ondansetron HCl (Ondansetron 4 Mg Odt) 4 mg PO NOW PRN PRN Reason: Nausea And Vomiting Ondansetron HCl (Ondansetron 4 Mg/2 Ml Inj) 4 mg IV NOW PRN PRN Reason: Nausea And Vomiting Ondansetron HCl (Ondansetron 4 Mg Odt Prepack) 1 bottle MISC DIRECTED ONE Stop: 02/13/23 21:19 Last Admin: 02/13/23 21:29 Dose: 1 bottle Documented By: СЕРГЕЙ Vital Signs Vital signs: Vital Signs - 8 hr 02/13/23 21:29 Pulse Rate 78 Respiratory Rate 18 Blood Pressure 123/59 L Pulse Oximetry 98 Oxygen Delivery Method Room Air Medical Decision Making Medical Records Medical records reviewed: Yes I reviewed the patient's medical records. Lab Data Lab results reviewed: Yes I reviewed the patient's lab results. 02/13/23 16:45 02/13/23 16:45 Labs: Lab Results 02/13/23 02/13/23 Range/Units 16:45 19:00 WBC 11.5 H (4.5-11.0) X10^3/uL RBC 4.68 (4.0-5.2) X10^6/uL Hgb 14.6 (12.0-16.0) g/dL Hct 42.4 (36-46) % MCV 90.7 (80-100) fL MCH 31.3 (26-34) PG MCHC 34.5 (30-36) % RDW 12.9 (11.6-14.8) % Plt Count 260 (150-400) X10^3/uL Neut % (Auto) 57.4 (50-75) % Lymph % (Auto) 32.4 (25-40) % [place] % (Auto) 6.1 (3-14) % Eos % (Auto) 2.9 (2-4) % Baso % (Auto) 1.2 (0-2) % Neut # (Auto) 6600 (9940-2516) /uL Lymph # (Auto) 3700 (9943-2539) /uL Sargent # (Auto) 700 (0-900) /uL Eos # (Auto) 300 (0-450) /uL Baso # (Auto) 100 (0-100) /uL Sodium 138 (137-145) mmol/L Potassium 3.9 (3.4-5.1) mmol/L Chloride 107 (98-107) mmol/L Carbon Dioxide 23 (22-32) mmol/L BUN 10 (7-17) mg/dL Creatinine 0.59 (0.52-1.04) mg/dL Estimated GFR > 60 (>60) mL/min BUN/Creatinine Ratio 16.9 (6-22) Glucose 84 (70-100) mg/dL Calcium 9.6 (8.4-10.2) mg/dL Total Bilirubin 0.3 (0.2-1.3) mg/dL AST 22 (14-36) IU/L ALT 17 (<35) IU/L Alkaline Phosphatase 57 (38-126) U/L Total Protein 7.4 (6.3-8.2) g/dL Albumin 4.2 (3.5-5.0) g/dL Globulin 3.2 (1.7-4.1) g/dL Albumin/Globulin Ratio 1.3 (1.0-2.8) Lipase 62 (23-300) U/L Urine Color Yellow Urine Appearance Clear Urine pH 5.5 (4.5-8.0) Ur Specific [place] 1.020 (1.000-1.035) Urine Protein Negative (Negative) Urine Glucose (UA) Negative (Negative) g/dL Urine Ketones Negative (NEGATIVE) Urine Occult Blood Negative (Negative) Urine Nitrate Negative (Negative) Urine Bilirubin Negative (NEGATIVE) Urine Urobilinogen 0.2 (0.2) E.U./dL Ur Leukocyte Esterase Negative (NEGATIVE) Urine Test Negative (Negative) Imaging Data CT scan - abdomen/pelvis: Radiologist's Impression: PROCEDURE: CT ABDOMEN PELVIS W CON INDICATIONS: hx of diverticulitis not better with abx TECHNIQUE: After the administration of intravenous contrast, axial sections acquired from the lung bases to the pubic symphysis. Coronal and sagittal reformats were performed. For radiation dose reduction, the following was used: automated exposure control, adjustment of mA and/or kV according to patient size. COMPARISON: [facility], CT, CT ABDOMEN PELVIS W CON, 11/23/2022, 10:41. FINDINGS: Image quality: Excellent. Lung bases: Unremarkable. Heart: No significant findings. ABDOMEN: Liver: Unremarkable. Gallbladder: Unremarkable. Biliary ducts: Unremarkable. Pancreas: Unremarkable. Spleen: Unremarkable. Adrenal Glands: Unremarkable. Kidneys and Ureters: Unremarkable. Stomach and Bowel: Multiple diverticula are seen in the colon. There is relative long segment bowel wall thickening in the descending and sigmoid colon. No focal pericolonic inflammatory changes. Small bowel loops and stomach are unremarkable. Moderate proximal colonic stool. Normal appendix. Peritoneum: Trace fluid fluid in the pelvis is nonspecific and may be physiologic in a premenopausal woman. No pneumoperitoneum. No peritoneal abscess is seen. Ventral Wall: No hernias. Abdominal Nodes: No retroperitoneal or mesenteric adenopathy by size criteria. Vessels: Aorta and inferior vena cava are normal in size. PELVIS: Pelvic Organs: Peripherally enhancing right ovarian cyst is considered physiologic. Intrauterine device is seen in expected position. Bladder: Bladder is underdistended. Pelvic Nodes: No enlarged lymph nodes. Miscellaneous: No hernias are seen. Bones: Unremarkable. IMPRESSION: 1. Colonic diverticulosis without definite signs of acute diverticulitis or peritoneal abscess. 2. Long segment bowel wall thickening in the descending and sigmoid colon may be related to underdistention versus a nonspecific colitis. 3. Peripherally enhancing right ovarian cyst is seen with a small amount of fluid in the pelvis, suspicious for recently ruptured physiologic cyst. MDM Narrative Medical decision making narrative: Patient's labs today are unremarkable. She is an unremarkable/benign exam. CT scan shows no signs of diverticulitis/perforation/abscess. She was having a very difficult time tolerating her antibiotics. Given the CT scan today and new guidelines stating that uncomplicated diverticulitis could potentially be treated without antibiotics I did advise that she stop taking the antibiotics. I suspect that this is going to help her nausea and vomiting. I did give her information for follow-up with general surgery as this is the 3rd time that she has had diverticulitis in the past several months. No indication for emergent surgical consultation. She was given return precautions. She expressed understanding and agreement. Discharge Plan Departure Patient Disposition: Home Clinical Impression: Nausea Instructions: DI for Nausea -- Adult Activity Restrictions/Additional Instructions: Recommend that you stop taking the metronidazole/Flagyl and ciprofloxacin/Cipro. These are the antibiotics for the diagnosis of diverticulitis. I suspect that once you stop taking these medications your symptoms will improve. I do recommend you contact the general surgery department at the number provided below for follow-up. Return to the emergency department for new symptoms. Referrals: Rocio Nagy PA-C [Primary Care Provider] - Tushar Macedo MD [Physician] - Stand Alone Forms: Patient Portal/API
[2023-02-13] MEDS: SODIUM CHLORIDE 0.9% 1,000 ML 1000 ML IV (20:16)
[2023-02-13 21:29] VITALS: BP 123/59; PULSE 78; RESP 18; O2SAT 98
[2023-02-13] MEDS: ONDANSETRON 4 MG ODT PREPACK 1 BOTTLE MISC (21:29)
== END 2023-02-13 21:35 | disposition home or self-care (01) ==
PROVIDERS: Emergency Medicine; Emergency Provider Emergency Medicine; PCP Physician Assistant
DX: R11.2 Nausea with vomiting, unspecified (principal)
CPT/HCPCS: 36415; 74177; 80053; 81003; 81025; 83690; 85025; 99284; Q9967

== ENCOUNTER 2024-07-29 08:38 | Emergency (ER) | payer OTHER, SELFPAY ==
[2024-07-29] VITALS (10 sets, daily range): BP systolic 113–135; BP diastolic 66–81; PULSE 68–89; RESP 9–20; TEMP 36.9; O2SAT 99–100; BMI 28.9
--- NOTE | 2024-07-29 08:51 | DI.CT.S_ITS ---
PROCEDURE: CT ABDOMEN PELVIS W CON INDICATIONS: pain, hx diverticulitis TECHNIQUE: After the administration of intravenous contrast, axial sections acquired from the lung bases to the pubic symphysis. Coronal and sagittal reformats were performed. For radiation dose reduction, the following was used: automated exposure control, adjustment of mA and/or kV according to patient size. COMPARISON: [facility], CT, CT ABDOMEN PELVIS W CON, 02/13/2023, 20:03. FINDINGS: Image quality: Diagnostic. Lower Chest: No significant findings. ABDOMEN: Liver: No solid mass. Gallbladder: No radiopaque gallstones or wall thickening. Biliary ducts: No biliary dilation. Pancreas: No ductal dilation. Spleen: Size is within normal limits. Adrenal Glands: No adrenal nodules. Kidneys and Ureters: No hydronephrosis. No solid mass. No complex renal cystic lesion which requires follow up. Stomach and Bowel: Postsurgical changes are noted in rectal sigmoid region with surgical anastomosis. No bowel obstruction . No gastric or small bowel wall thickening. Diffuse colonic wall thickening with edema and narrowing of the lumen. Mild pericolonic fat stranding is seen. No abscess collection. Peritoneum: No abnormal intraperitoneal fluid. No free air. Ventral Wall: No significant ventral hernia. Abdominal Nodes: No retroperitoneal or mesenteric adenopathy by size criteria. Vessels: Aorta and inferior vena cava are normal in size. PELVIS: Pelvic Organs: 3.7 x 3 cm cystic structure is seen in left adnexa. Bladder: No bladder wall thickening, accounting for underdistention. Pelvic Nodes: No enlarged lymph nodes. Miscellaneous: No inguinal hernias are seen. Bones: No aggressive osseous abnormality. IMPRESSION: 1. Finding likely represent infectious or inflammatory colitis. Prior partial colectomy with grossly intact surgical anastomosis. No bowel obstruction. No abscess collection. No free fluid or free air. 2. 3.7 x 3 cm cystic structure is seen in left adnexa. Finding likely represent a left ovarian cyst. Pelvic ultrasound can be done for further evaluation if clinically indicated. Dictated by: Quoc De Jesus M.D. on 07/29/2024 at 9:43 Approved by: Quoc De Jesus M.D. on 07/29/2024 at 9:47
--- NOTE | 2024-07-29 09:04 | ED.ABDPAIN ---
HPI - Abdominal Pain General Chief Complaint: Abdominal Pain Stated Complaint: diverticulitis flare Time Seen by Provider: 07/29/24 08:51 Source: patient Mode of arrival: Ambulatory History of Present Illness HPI narrative: 43 year old female with history of previous diverticulitis, multiple left lower quadrant bouts diverticultis 2023 leading to left sigmoid colectomy surgery March 2024 at [facility], complains of one-week duration of left-sided abdominal pain that feels similar, no nausea or vomiting. No fevers or chills. Has had slightly loose stools without black or red color, no mucoid stools. She has not recall any history of established diagnosis Crohn's disease or ulcerative colitis. She has hormone implant, occasional spotting, no recent vaginal bleeding, does have history of ovarian cysts. Denies painful or frequent urination. Related Data Previous Rx's Medication Instructions Recorded amoxicillin 875 mg-potassium 1 tab PO BID #20 tabs 07/29/24 clavulanate 125 mg tablet tramadol 50 mg tablet 50 mg PO TID PRN pain #14 tabs 07/29/24 Allergies Allergy/AdvReac Type Severity Reaction Status Date / Time No Known Drug Allergies Allergy Verified 11/23/22 09:37 Patient History Medical History (Updated 07/29/24 @ 10:44 by Faustino Licea MD) GERD (gastroesophageal reflux disease) IUD (intrauterine device) in place Healthy adult Social History Smoking Status: Current every day smoker Smoking Status: Current every day smoker tobacco type: vaping alcohol intake frequency: other Exam Narrative Exam Narrative: GENERAL: Well-developed patient, in mild distress. HEAD: Atraumatic. Normocephalic. EYES: Pupils equal round and reactive. Extraocular motions intact. No scleral icterus. No injection or drainage. ENT: Nose without bleeding, purulent drainage. Throat without erythema, tonsillar hypertrophy or exudate. Airway patent. NECK: Trachea midline. Non tender CARDIOVASCULAR: Regular rate and rhythm without murmurs, gallops, or rubs. RESPIRATORY: Clear to auscultation. Breath sounds equal bilaterally. No wheezes, rales, or rhonchi. GASTROINTESTINAL: Abdomen soft, mild tenderness left lower quadrant, no distension EXTREMITIES: No edema or joint tenderness. BACK: Nontender without deformity or crepitance. No flank tenderness. NEURO: AOx3. Motor functions grossly nonfocal SKIN: No rash or erythema of visible areas Initial Vital Signs Initial Vital Signs: Vital Signs Temperature 98.4 F 07/29/24 08:47 Pulse Rate 88 07/29/24 08:47 Respiratory Rate 18 07/29/24 08:47 Blood Pressure 132/80 07/29/24 08:47 Pulse Oximetry 100 07/29/24 08:47 Oxygen Delivery Method Room Air 07/29/24 08:47 Course Orders Ordered: Discontinued Medications Hydromorphone HCl (Hydromorphone 0.5 Mg Inj) 0.5 mg IV NOW ONE Stop: 07/29/24 09:07 Last Admin: 07/29/24 09:48 Dose: 0.5 mg Documented By: JACOB Sodium Chloride (Normal Saline 0.9%) 1,000 mls @ 1,000 mls/hr IV BOLUS ONE Stop: 07/29/24 10:20 Last Infusion: 07/29/24 10:42 Dose: Infused Documented By: Admin: 07/29/24 09:48 Dose: 1,000 mls/hr Documented By: JACOB Piperacillin Sod/Tazobactam (Sod 4.5 gm/ Sodium Chloride) 100 mls @ 200 mls/hr IV NOW ONE Stop: 07/29/24 10:09 Last Infusion: 07/29/24 11:14 Dose: Infused Documented By: Admin: 07/29/24 10:38 Dose: 200 mls/hr Documented By: JACOB Ondansetron HCl (Ondansetron 4 Mg/2 Ml Inj) 4 mg IV NOW PRN PRN Reason: Nausea And Vomiting Ondansetron HCl (Ondansetron 4 Mg Odt) 4 mg PO NOW PRN PRN Reason: Nausea And Vomiting Ondansetron HCl (Ondansetron 4 Mg/2 Ml Inj) 4 mg IV NOW ONE Stop: 07/29/24 09:23 Last Admin: 07/29/24 09:48 Dose: 4 mg Documented By: JACOB Tramadol HCl (Tramadol 50 Mg Tablet) 100 mg PO NOW ONE Stop: 07/29/24 10:39 Last Admin: 07/29/24 10:49 Dose: 100 mg Documented By: JACOB Vital Signs Vital signs: Vital Signs - 8 hr 07/29/24 08:47 07/29/24 09:05 07/29/24 09:30 Temperature 98.4 F Pulse Rate 88 89 77 Respiratory Rate 18 17 Blood Pressure 132/80 Pulse Oximetry 100 99 100 Oxygen Delivery Method Room Air 07/29/24 09:30 07/29/24 09:40 07/29/24 09:40 Temperature Pulse Rate 75 Respiratory Rate 20 Blood Pressure 113/66 135/70 Pulse Oximetry 99 Oxygen Delivery Method 07/29/24 10:00 07/29/24 10:00 Temperature Pulse Rate 82 Respiratory Rate 15 Blood Pressure 123/72 Pulse Oximetry 99 Oxygen Delivery Method MDM - Abdominal Pain Lab Data Attestation: I reviewed the patient's lab results. Lab results narrative: Urine dip negative, urine test negative. White blood cell count 8800, hemoglobin 14.3, platelets adequate. Glucose 119. Renal function normal. Electrolytes unremarkable. Liver functions and lipase normal. 07/29/24 08:53 07/29/24 08:53 Labs: Lab Results 07/29/24 Range/Units 08:53 WBC 8.8 (4.5-11.0) X10^3/uL RBC 4.54 (4.0-5.2) X10^6/uL Hgb 14.3 (12.0-16.0) g/dL Hct 41.6 (36-46) % MCV 91.7 (80-100) fL MCH 31.6 (26-34) PG MCHC 34.5 (30-36) % RDW 12.9 (11.6-14.8) % Plt Count 254 (150-400) X10^3/uL Neut % (Auto) 60.7 (50-75) % Lymph % (Auto) 30.3 (25-40) % [place] % (Auto) 5.6 (3-14) % Eos % (Auto) 2.2 (2-4) % Baso % (Auto) 1.2 (0-2) % Neut # (Auto) 5400 (6039-9047) /uL Lymph # (Auto) 2700 (0239-4893) /uL [place] # (Auto) 500 (0-900) /uL Eos # (Auto) 200 (0-450) /uL Baso # (Auto) 100 (0-100) /uL Sodium 137 (137-145) mmol/L Potassium 4.1 (3.4-5.1) mmol/L Chloride 107 (98-107) mmol/L Carbon Dioxide 23 (22-32) mmol/L BUN 14 (7-17) mg/dL Creatinine 0.69 (0.52-1.04) mg/dL Estimated GFR > 60 (>60) mL/min BUN/Creatinine Ratio 20.3 (6-22) Glucose 119 H (70-99) mg/dL Calcium 9.3 (8.4-10.2) mg/dL Total Bilirubin 0.3 (0.2-1.3) mg/dL AST 28 (14-36) IU/L ALT 21 (<35) IU/L Alkaline Phosphatase 68 (38-126) U/L Total Protein 7.3 (6.3-8.2) g/dL Albumin 4.2 (3.5-5.0) g/dL Globulin 3.1 (1.7-4.1) g/dL Albumin/Globulin Ratio 1.4 (1.0-2.8) Lipase 58 (23-300) U/L Point of care testing: Point of Care Testing Test Results Negative Urine Dip Bedside Urine Glucose Negative Bedside Urine Bilirubin - Negative Bedside Urine Ketone - Negative Urine Specific [place] 1.025 Bedside Urine Occult Blood - Negative Bedside Urine pH 6.0 Bedside Urine Protein - Negative Bedside Urine Urobilinogen - Negative Bedside Urine Nitrite - Negative Bedside Urine Leukocytes - Negative Esterase Imaging Data CT scan - abdomen/pelvis: Radiologist's Impression: ? Faustino Licea MD [facility] Routine Call Back Main ED ?8? My List ?9? Fast Track ?0? Waiting ?0? Surge ED ?0? R04? Jeffrey? ? Prince? 46 M? With Doctor? 1h 29m? 2-Emergent? Shortness of Breath/Dyspnea? big toe is black, weakness? 07/29/24 09:18? REG ER? No Document? Faustino Hudson ? Order BP 118/76 Pulse 92 Resp 29 Temp O2 Sat 98% ?Complete B... EKG-12 Leila... Imaging Chem Erythrocyt... Cardiac mo... Troponin &... Cardiac mo... Covid-19 +... R05? Power? ? Viki? 87 F? With Doctor? 5h 25m? 3-Urgent? Urogenital-Female? cath not draining? 07/29/24 05:02? REG ER? Draft? Faustino Hudson Transfer for Urology waitlist [facility] Order BP 136/84 Pulse 99 Resp 16 Temp O2 Sat 96% (RA) ?Chem ?Complete B... Imaging R06? Tullar? ? Nadia? 43 F? With Doctor? 1h 27m? 3-Urgent? Abdominal Pain? diverticulitis flare? 07/29/24 08:51? REG ER? Draft? Faustino Escobar S ? Order BP 132/80 Pulse 88 Resp 18 Temp 98.4 F O2 Sat 100% (RA) Complete B... ?Chem Lipase Sta... POC/ZAKI Imaging MAR EKG-12 Leila... Cardiac mo... NPO Diet R07? Hirzel? ? Nisha? 79 F? With Doctor? 1h 26m? 3-Urgent? Urogenital-Female? bladder infection, parkinsons? 07/29/24 09:22? REG ER? Draft? Faustino Escobar S Order BP 147/77 Pulse 86 Resp 16 Temp 98.0 F O2 Sat 99% (RA) ?Urinalysis... MAR POC/ZAKI Microbiolo... R08? Sahlin? ? Lenny? 77 M? With Doctor? 1h 9m? 2-Emergent? Abdominal Pain? KIDNEY STONE ATTACK? 07/29/24 09:41? REG ER? No Document? Faustino Escobar S Order BP 186/91 Pulse 58 Resp 24 Temp 97.6 F O2 Sat 98% (RA) ?Complete B... POC/ZAKI MAR NPO Diet Chem Lipase Sta... Cardiac mo... Urine Micr... R10? Hunter? ? Jillene? 54 F? With Doctor? 14h 14m? 3-Urgent? She/Her/Hers? ?? Back Pain/Injury? fell 1 week ago? 07/29/24 00:44? REG ER? Draft? Faustino Vazquez Need med order for pain meds please consult PT/PERFORMANCE INSTRUCTOR, ?[facility], ?Home Health Order BP 138/70 Pulse 88 Resp 16 Temp 98.2 F O2 Sat 99% (RA) ?Chem ?Complete B... Imaging MAR Consult to... R11? Gilae? ? Aniket? 66 M? In Room? 5m? No Chief Complaint? kindney pain x4 days? No Time Seen? REG ER? No Document? Sign Up Ambar Vazquez Order R12? Annie? ? Marites? 55 F? With Doctor? 1h 22m? 2-Emergent? Chest Pain? chest pain, SOB feels like water is in lungs? 07/29/24 08:53? REG ER? Draft? Faustino Nuñezronald Vazquez Rpt trop/EKG @1100 Order BP 122/60 Pulse 74 Resp 19 Temp O2 Sat 97% EKG-12 Leila... ?Complete B... ?Chem Lipase Sta... Troponin &... Imaging MAR Cardiac mo... Cardiac mo... Imaging - CT abdomen pelvis w con Nadia Melchor??43??F??1980 ? Allergy/Adv: No Known Drug Allergies Close Imaging ACTIVITY DATE EXAM STATUS AUTHOR 07/29/24 08:51 Abdomen/Pelvis CT Signed [facility] Imaging Reports Close Abdomen/Pelvis CT (Signed) Quoc De Jesus - 07/29/24 Launch?[place] [address] CT Scan Report Signed Patient: Nadia Melchor MR#: [id number] : 1980 Acct:[id number] Age/Sex: 43 / F Date of Service: 07/29/24 Loc: ED Accession Number: [id number] Procedure: CT abdomen pelvis w con Ordering Provider: Faustino Licea MD PROCEDURE: CT ABDOMEN PELVIS W CON INDICATIONS: pain, hx diverticulitis TECHNIQUE: After the administration of intravenous contrast, axial sections acquired from the lung bases to the pubic symphysis. Coronal and sagittal reformats were performed. For radiation dose reduction, the following was used: automated exposure control, adjustment of mA and/or kV according to patient size. COMPARISON: [facility], CT, CT ABDOMEN PELVIS W CON, 02/13/2023, 20:03. FINDINGS: Image quality: Diagnostic. Lower Chest: No significant findings. ABDOMEN: Liver: No solid mass. Gallbladder: No radiopaque gallstones or wall thickening. Biliary ducts: No biliary dilation. Pancreas: No ductal dilation. Spleen: Size is within normal limits. Adrenal Glands: No adrenal nodules. Kidneys and Ureters: No hydronephrosis. No solid mass. No complex renal cystic lesion which requires follow up. Stomach and Bowel: Postsurgical changes are noted in rectal sigmoid region with surgical anastomosis. No bowel obstruction . No gastric or small bowel wall thickening. Diffuse colonic wall thickening with edema and narrowing of the lumen. Mild pericolonic fat stranding is seen. No abscess collection. Peritoneum: No abnormal intraperitoneal fluid. No free air. Ventral Wall: No significant ventral hernia. Abdominal Nodes: No retroperitoneal or mesenteric adenopathy by size criteria. Vessels: Aorta and inferior vena cava are normal in size. PELVIS: Pelvic Organs: 3.7 x 3 cm cystic structure is seen in left adnexa. Bladder: No bladder wall thickening, accounting for underdistention. Pelvic Nodes: No enlarged lymph nodes. Miscellaneous: No inguinal hernias are seen. Bones: No aggressive osseous abnormality. IMPRESSION: 1. Finding likely represent infectious or inflammatory colitis. Prior partial colectomy with grossly intact surgical anastomosis. No bowel obstruction. No abscess collection. No free fluid or free air. 2. 3.7 x 3 cm cystic structure is seen in left adnexa. Finding likely represent a left ovarian cyst. Pelvic ultrasound can be done for further evaluation if clinically indicated. Dictated by: Quoc De Jesus M.D. on 07/29/2024 at 9:43 Approved by: Quoc De Jesus M.D. on 07/29/2024 at 9:47 [facility] Narrative Medical decision making narrative: 43-year-old female with left lower quadrant pain status post left sigmoid colectomy March 2024 after history of recurrent bouts diverticulitis left-sided during the your 2023, now with left lower quadrant pain for 1 week, mild tenderness left lower quadrant on examination, nonrigid. Afebrile, SIRS screen negative. DDx consider colitis, diverticulitis, bowel obstruction, anastomotic leak, UTI/ureteral stone, other. White blood cell count normal. Urine dip negative. Urine test negative. Renal function adequate. CT abdomen and pelvis ordered. Still in pain, IV Dilaudid/Zofran to be given. Patient has history of upset stomach with NSAIDs, we will hold off on Toradol for now. CT abdomen and pelvis, shows diffuse colitis changes, postoperative changes, anastomotic area intact, no perforation, no abscess, no obstruction. See radiology report. IV Zosyn. Patient feels that she has reasonable abdominal pain control, we would like to try further treatment as an outpatient for now. We will send prescription for Augmentin 10 day course antibiotic to your pharmacy. She has taken tramadol with good relief in the past, would like to try this for pain control if needed, prescription sent to her pharmacy. Recheck advised with the regular doctor on Thursday08/02/2024, return precautions discussed. Discharge Plan Departure Patient Disposition: Home Clinical Impression: Colitis Instructions: DI for Colitis Activity Restrictions/Additional Instructions: History of diverticulitis and left sigmoid colectomy surgery earlier this year, now with left-sided discomfort. No fever. CT scanning showed colitis changes rather diffuse not particularly left-sided, without bowel obstruction, without abscess, without perforation, without complex findings at this time. IV Zosyn antibiotics started. You felt comfortable trying outpatient further treatment for now. Prescription sent for Augmentin 10 day course to your pharmacy. Tramadol was helpful in the past, prescription sent to use for pain control to your pharmacy. Consider recheck of your symptoms on Thursday after this holiday weekend with your regular doctor. Return earlier to this/nearest emergency department for any change worsening symptoms or any concerns prior. We will treat with antibiotics for presumed infectious colitis at this time. It is possible you could have diffuse inflammatory colitis, such as ulcerative colitis inflammatory bowel disease. Consider GI consultation in follow up. Prescriptions: New amoxicillin-pot clavulanate 875-125 mg tablet 1 tab PO BID Qty: 20 0RF tramadol 50 mg tablet 50 mg PO TID PRN (Reason: pain) Qty: 14 0RF Referrals: Rocio Nagy PA-C [Primary Care Provider] - Stand Alone Forms: Patient Portal/API/Survey
[2024-07-29 09:11] LABS: Add Manual Diff / Slide Review NO; Basophils Absolute Auto 100 /uL (0-100); Basophils Percent Auto 1.2 % (0-2); Eosinophils Absolute Auto 200 /uL (0-450); Eosinophils Percent Auto 2.2 % (2-4); Hematocrit 41.6 % (36-46); Hemoglobin 14.3 g/dL (12.0-16.0); Lymphocytes Absolute Auto 2700 /uL (1100-4500); Lymphocytes Percent Auto 30.3 % (25-40); Mean Corpuscular HGB Conc 34.5 % (30-36); Mean Corpuscular Hemoglobin 31.6 PG (26-34); Mean Corpuscular Volume 91.7 fL (80-100); Monocytes Absolute Auto 500 /uL (0-900); Monocytes Percent Auto 5.6 % (3-14); Neutrophils Absolute Auto 5400 /uL (1500-7000); Neutrophils Percent Auto 60.7 % (50-75); Platelet Count 254 X10^3/uL (150-400); Red Blood Cell Count 4.54 X10^6/uL (4.0-5.2); Red Cell Distribution Width 12.9 % (11.6-14.8); White Blood Cell Count 8.8 X10^3/uL (4.5-11.0)
[2024-07-29 09:13] LABS: Alanine Aminotransferase 21 IU/L (<35); Albumin 4.2 g/dL (3.5-5.0); Albumin Globulin Ratio 1.4 (1.0-2.8); Alkaline Phosphatase 68 U/L (38-126); Aspartate Aminotransferase 28 IU/L (14-36); BUN Creatinine Ratio 20.3 (6-22); Bilirubin Total 0.3 mg/dL (0.2-1.3); Blood Urea Nitrogen 14 mg/dL (7-17); Calcium 9.3 mg/dL (8.4-10.2); Carbon Dioxide 23 mmol/L (22-32); Chloride 107 mmol/L (98-107); Estimated Glomerular Filt Rate > 60 mL/min (>60); Globulin 3.1 g/dL (1.7-4.1); Glucose 119 mg/dL (70-99); HEMOLYSIS < 15 (0-50); Lipase 58 U/L (23-300); Potassium 4.1 mmol/L (3.4-5.1); Sodium 137 mmol/L (137-145); Total Protein 7.3 g/dL (6.3-8.2)
[2024-07-29] MEDS: SODIUM CHLORIDE 0.9% 1,000 ML 1000 ML IV (09:48)
[2024-07-29] MEDS: HYDROMORPHONE 0.5 MG INJ IV (09:48)
[2024-07-29] MEDS: ONDANSETRON 4 MG/2 ML INJ IV (09:48)
[2024-07-29] MEDS: PIPERACILLIN/TAZO 4.5 GM in SODIUM CHLORIDE 0.9% 100 ML IV (10:38)
[2024-07-29] MEDS: TRAMADOL 50 MG TABLET 100 MG PO (10:49)
== END 2024-07-29 11:21 | disposition home or self-care (01) ==
PROVIDERS: Emergency Provider Emergency Medicine; PCP Physician Assistant
DX: K52.9 Noninfective gastroenteritis and colitis, unspecified (principal); Z90.49 Acquired absence of other specified parts of digestive tract; Z87.19 Personal history of other diseases of the digestive system
CPT/HCPCS: 36415; 74177; 80053; 81003; 81025; 83690; 85025; 96361; 96365; 96375; 99284; J1171; J2405; J2543; Q9967

== ENCOUNTER 2025-01-24 11:25 | Emergency (ER) | payer OTHER, SELFPAY ==
[2025-01-24 11:28] VITALS: BP 115/86; PULSE 109; RESP 18; TEMP 36.5; O2SAT 98; BMI 30.2
--- NOTE | 2025-01-24 11:31 | DI.RAD.S_ITS ---
PROCEDURE: XR LUMBAR SPINE 2-3V INDICATIONS: low back pain TECHNIQUE: 3 views of the lumbar spine were acquired. COMPARISON: None. FINDINGS: Bones: 5 [id number] vertebrae are present. There is normal bony alignment. No vertebral body compression fractures. No suspicious bony lesions. Mild multilevel degenerative disc disease and facet arthropathy. Soft tissues: Overlying bowel gas pattern is normal. No suspicious soft tissue calcifications. IMPRESSION: No acute bony abnormality. Dictated by: Roxann Galvez MD, PhD on 01/24/2025 at 11:49 Approved by: Roxann Galvez MD, PhD on 01/24/2025 at 11:49
--- NOTE | 2025-01-24 11:34 | ED_ITS ---
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 Patient was at work, picking up a heavy carton of canned goods, when she 1st felt a twinge. A little while later, she was picking up something else and and she experienced extreme pain. Patient complaining of lower back pain, with pain radiating upwards on the right side into the flank region. Patient does have a history of slipped disc in the lower back, has exacerbations every now and then, however this is the worst pain she has felt. Patient has not urinated since the injury, does feel the urge to urinate right now, will also obtain a urine sample. No numbness, tingling, weakness, saddle paresthesias. Related Data Previous Rx's ?Medication ?Instructions ?Recorded amoxicillin 875 mg-potassium 1 tab PO BID #20 tabs clavulanate 125 mg tablet tramadol 50 mg tablet 50 mg PO TID PRN pain #14 ta bs 07/29/24 cyclobenzaprine 10 mg tablet 10 mg PO TID PRN muscle s pasm #20 01/24/25 tabs oxycodone-acetaminophen 5 mg-325 1 tab PO Q8H PRN pain #20 tabs 01/24/25 mg tablet (Percocet) Allergies Allergy/AdvReac Type Severity Reaction Status Date / Time No Known Drug Allergies Allergy Verified 01/24/25 11:28 Review of Systems <Marquise Conrad PA-C - Last Filed: 01/24/25 18:52> Constitutional Constitutional: Denies chills, Denies fatigue, Denies fever(s), Denies frequent falls, Denies lethargy and Denies weakness Eyes Eyes: Denies change in vision, Denies eye discharge, Denies irritation and Denies loss of vision ENT Ears, Nose, Mouth, and Throat: Denies change in voice, Denies dizziness, Denies neck pain, Denies sore throat and Denies throat swelling Cardiovascular Cardiovascular: Denies chest pain, Denies irregular heart rhythm, Denies lightheadedness, Denies palpitations, Denies dyspnea, Denies dyspnea on exertion and Denies orthopnea Respiratory Respiratory: Denies cough, Denies dyspnea, Denies dyspnea on exertion and Denies wheezing Gastrointestinal Gastrointestinal: Denies abdominal pain, Denies change in bowel habits, Denies d iarrhea, Denies nausea and Denies vomiting Musculoskeletal Musculoskeletal: Reports back pain, Denies neck pain and Denies numbness Integumentary/Breasts Skin/Breast: Denies pruritus, Denies erythema, Denies rash and Denies wounds Neurologic Neurologic: Denies behavioral changes, Denies confusion, Denies dizziness, Denies frequent falls, Denies loss of vision, Denies numbness and Denies weakness Psychiatric Psychiatric: Denies anxiety, Denies behavioral changes, Denies confusion, Denies depression, Denies homicidal ideation and Denies suicidal ideation Endocrine Endocrine: Denies fatigue, Denies flushing and Denies palpitations Hematologic/Lymphatic Hematologic/Lymphatic: Denies easy bruising Allergic/Immunologic Allergic/Immunologic: Denies urticaria, Denies throat swelling and Denies wheezing Patient History <Marquise Conrad PA-C - Last Filed: 01/24/25 18:52> Medical History GERD (gastroesophageal reflux disease) IUD (intrauterine device) in place Healthy adult tobacco type: vaping alcohol intake frequency: other Exam <Marquise Conrad PA-C - Last Filed: 01/24/25 18:52> Narrative Exam Narrative: Const General:?cooperative, healthy appearing and comfortable [facility] Head:?normal to inspection Ears:?hearing grossly normal bilaterally Nose:?external nose normal Face and sinus:?normal facial exam and sinuses nontender Mouth:?oral mucosae normal Throat:?posterior oropharynx normal Eyes General:?appearance normal, both eyes and all related structures Neck Neck:?normal visual inspection and no lymphadenopathy noted Resp Effort & Inspection:?normal respiratory effort Auscultation:?clear to auscultation bilaterally Cardio Rate:?regular rate Rhythm:?regular rhythm Musculoskeletal There is some paraspinal tenderness to palpation in the right lumbar region. Neurovascularly intact. Gait normal. Neuro General:?patient alert, patient awake and patient oriented x3 Initial Vital Signs Initial Vital Signs: Vital Signs Temperature 97.7 F 01/24/25 11:28 Pulse Rate 109 H 01/24/25 11:28 Respiratory Rate 18 01/24/25 11:28 Blood Pressure 115/86 01/24/25 11:28 Pulse Oximetry 98 01/24/25 11:28 Oxygen Delivery Method Room Air 01/24/25 11:28 <Uma Cartagena DO - Last Filed: 01/24/25 23:33> Initial Vital Signs Initial Vital Signs: Vital Signs Temperature 97.7 F 01/24/25 11:28 Pulse Rate 109 H 01/24/25 11:28 Respiratory Rate 18 01/24/25 11:28 Blood Pressure 115/86 01/24/25 11:28 Pulse Oximetry 98 01/24/25 11:28 Oxygen Delivery Method Room Air 01/24/25 11:28 Course <Marquise Conrad PA-C - Last Filed: 01/24/25 18:52> Orders Ordered: Discontinued Medications Cyclobenzaprine HCl (Cyclobenzaprine 10 Mg Tablet) 10 mg PO NOW ONE Stop: 01/24/25 11:33 Last Admin: 01/24/25 11:41 Dose: 10 mg Documented By: ERNESTINE Ketorolac Tromethamine (Ketorolac 30 Mg/Ml Vial) 30 mg IM NOW ONE Stop: 01/24/25 11:33 Last Admin: 01/24/25 11:41 Dose: 30 mg Documented By: ERNESTINE Morphine Sulfate (Morphine 4 Mg/Ml Inj) 4 mg IV NOW ONE Stop: 01/24/25 13:21 Ondansetron HCl (Ondansetron 4 Mg Odt) 4 mg SL NOW ONE Stop: 01/24/25 11:34 Last Admin: 01/24/25 11:41 Dose: 4 mg Documented By: ERNESTINE Oxycodone/Acetaminophen (Oxycodone/Acetaminophen 5/325 Tablet) 1 tab PO NOW ONE Stop: 01/24/25 13:31 Last Admin: 01/24/25 13:41 Dose: 1 tab Documented By: PATRICIO Vital Signs Vital signs: Vital Signs - 8 hr 01/24/25 11:28 01/24/25 15:03 Temperature 97.7 F Pulse Rate 109 H 88 Respiratory Rate 18 17 Blood Pressure 115/86 122/69 Pulse Oximetry 98 99 Oxygen Delivery Method Room Air Room Air <Uma Cartagena DO - Last Filed: 01/24/25 23:33> Orders Ordered: Discontinued Medications Cyclobenzaprine HCl (Cyclobenzaprine 10 Mg Tablet) 10 mg PO NOW ONE Stop: 01/24/25 11:33 Last Admin: 01/24/25 11:41 Dose: 10 mg Documented By: ERNESTINE Ketorolac Tromethamine (Ketorolac 30 Mg/Ml Vial) 30 mg IM NOW ONE Stop: 01/24/25 11:33 Last Admin: 01/24/25 11:41 Dose: 30 mg Documented By: ERNESTINE Morphine Sulfate (Morphine 4 Mg/Ml Inj) 4 mg IV NOW ONE Stop: 01/24/25 13:21 Ondansetron HCl (Ondansetron 4 Mg Odt) 4 mg SL NOW ONE Stop: 01/24/25 11:34 Last Admin: 01/24/25 11:41 Dose: 4 mg Documented By: ERNESTINE Oxycodone/Acetaminophen (Oxycodone/Acetaminophen 5/325 Tablet) 1 tab PO NOW ONE Stop: 01/24/25 13:31 Last Admin: 01/24/25 13:41 Dose: 1 tab Documented By: PATRICIO Vital Signs Vital signs: Vital Signs - 8 hr 01/24/25 11:28 01/24/25 15:03 Temperature 97.7 F Pulse Rate 109 H 88 Respiratory Rate 18 17 Blood Pressure 115/86 122/69 Pulse Oximetry 98 99 Oxygen Delivery Method Room Air Room Air MDM - Back Pain/Injury <Marquise Conrad PA-C - Last Filed: 01/24/25 18:52> Lab Data Labs: Lab Results 01/24/25 Range/Units 11:40 Urine RBC 1-5/hpf (0-5/HPF) Urine WBC None seen (0-5/HPF) Ur Squamous Epith Cells 1-5 /hpf (0-5/HPF) Urine Bacteria None seen (None) Ur Culture Indicated? Cult not indicated Vol Urine Centrifuged 10ml (spun) Urine Test Negative (Negative) Urine Dip Bedside Urine Glucose Negative Bedside Urine Bilirubin - Negative Bedside Urine Ketone - Negative Urine Specific [place] 1.010 Bedside Urine Occult Blood +++ Bedside Urine pH 6.0 Bedside Urine Protein - Negative Bedside Urine Urobilinogen - Negative Bedside Urine Nitrite - Negative Bedside Urine Leukocytes - Negative Esterase MDM Narrative Medical decision making narrative: 44-year-old female with past medical history disc herniation in the lower back presents to the ED with an acute on chronic exacerbation of the lower back pain. Concern for fracture/dislocation versus musculoskeletal sprain/strain versus UTI versus other. No red flag symptoms. Will obtain x-ray, give Toradol and Flexeril. Will reassess. Patient's symptoms marginally improved with the Toradol and Flexeril. Patient was given some Percocet with good relief. X-ray without acute findings. Patient sent home with a prescription for Percocet and Flexeril. Recommend follow-up with PCP as soon as possible. ED return precautions discussed with patient. Patient verbalized understanding. Medical records reviewed: Yes <Uma Cartagena, - Last Filed: 01/24/25 23:33> Lab Data Labs: Lab Results 01/24/25 Range/Units 11:40 Urine RBC 1-5/hpf (0-5/HPF) Urine WBC None seen (0-5/HPF) Ur Squamous Epith Cells 1-5 /hpf (0-5/HPF) Urine Bacteria None seen (None) Ur Culture Indicated? Cult not indicated Vol Urine Centrifuged 10ml (spun) Urine Test Negative (Negative) Urine Dip Bedside Urine Glucose Negative Bedside Urine Bilirubin - Negative Bedside Urine Ketone - Negative Urine Specific [place] 1.010 Bedside Urine Occult Blood +++ Bedside Urine pH 6.0 Bedside Urine Protein - Negative Bedside Urine Urobilinogen - Negative Bedside Urine Nitrite - Negative Bedside Urine Leukocytes - Negative Esterase Discharge Plan Departure Patient Disposition: Home Clinical Impression: Low back pain Qualifiers: Chronicity: acute Back pain laterality: right Sciatica presence: without sciatica Qualified Code(s): M54.50 - Low back pain, unspecified Instructions: DI for Back Strain or Sprain Activity Restrictions/Additional Instructions: You were evaluated in the emergency department today for lower back pain. Your symptoms improved with Toradol, Flexeril and Percocet. Your symptoms are most consistent with either a musculoskeletal sprain/strain of the lower back versus a disc herniation. You are being prescribed Flexeril and Percocet to continue taking at home as needed. Please follow-up with your PCP as soon as possible. Return to the ED if you have worsening symptoms, numbness, tingling, weakness, urinary difficulties. Prescriptions: New oxycodone-acetaminophen [Percocet] 5-325 mg tablet 1 tab PO Q8H PRN (Reason: pain) Qty: 20 0RF cyclobenzaprine 10 mg tablet 10 mg PO TID PRN (Reason: muscle spasm) Qty: 20 0RF No Action amoxicillin-pot clavulanate 875-125 mg tablet 1 tab PO BID Qty: 20 0RF tramadol 50 mg tablet 50 mg PO TID PRN (Reason: pain) Qty: 14 0RF Referrals: Rocio Nagy PA-C [Primary Care Provider, Medical] Stand Alone Forms: Patient Portal/API, Work Release Note ED Sign-out <Uma Cartagena, - Last Filed: 01/24/25 23:33> Cosign ED Attending Cosignature Attestation: I was immediately available in the department for consultation.
[2025-01-24] MEDS: CYCLOBENZAPRINE 10 MG TABLET PO (11:41)
[2025-01-24] MEDS: KETOROLAC 30 MG/ML VIAL IM (11:41)
[2025-01-24] MEDS: ONDANSETRON 4 MG ODT SL (11:41)
[2025-01-24 11:55] LABS: Culture Indicated Urine Cult Not Indicated
[2025-01-24 15:03] VITALS: BP 122/69; PULSE 88; RESP 17; O2SAT 99
== END 2025-01-24 15:05 | disposition home or self-care (01) ==
PROVIDERS: Emergency Provider Student in an Organized Health Care Education/Training Program; PCP Physician Assistant
DX: M54.50 Low back pain, unspecified (principal); X50.0XXA Overexertion from strenuous movement or load, initial encounter
CPT/HCPCS: 72100; 81003; 81015; 81025; 87086; 96372; 99283; J1885